=== PATIENT | female | born 1975 | race Caucasian/White ===

== ENCOUNTER 2016-11-03 07:18 | Inpatient (IN) ==
[2016-11-01 11:43] LABS: MANUAL DIFF NEEDED? NO
[2016-11-01 11:49] LABS: BASO% 0.4 % (0.0-0.8); EOS# 0.07 X1000 (0.0-0.7); EOS% 1.3 % (0.0-10.0); HEMATOCRIT 37.3 % (37.0-47.0); HEMOGLOBIN 12.8 g/dL (12.0-16.0); LYMPH# 1.94 X1000 (1.2-3.4); MCH 31.2 PG (27-31); MCHC 34.3 g/dL (33-37); MONO# 0.31 X1000 (0.11-0.59); MONO% 5.9 % (1.7-9.3); MPV 10.7 FL (7.4-10.4); NEUT% 55.4 % (42.2-75.2); PLT 189 X1000 (130-400)
[2016-11-01 12:40] LABS: AGAP 11; BUN 9 mg/dL (8-22); CALCIUM 8.9 mg/dL (8.8-10.2); CHLORIDE 103 mmol/L (98-107); COSMO 276; POTASSIUM 4.3 mmol/L (3.5-5.1); SODIUM 139 mmol/L (136-145); TCO2 25 mmol/L (25-35)
[2016-11-03] MEDS ORDERED: LR 1,000 ML ONE ×2 (07:31→12:03)
[2016-11-03] MEDS ORDERED: MEFOXIN 2 GM/NS 2 GM/50 ML IVPB ONE (07:32)
[2016-11-03] MEDS ORDERED: PEPCID ONE (07:32)
[2016-11-03] MEDS ORDERED: REGLAN ONE (07:33)
[2016-11-03] MEDS ORDERED: SODIUM CHLORIDE 0.9% 10 ML ONE (08:57)
[2016-11-03] MEDS ORDERED: MARCAINE 0.25% PF ONE (08:58)
[2016-11-03] MEDS ORDERED: EXPAREL 1.3% ONE (08:59)
[2016-11-03] MEDS ORDERED: METHYLENE BLUE 0.5% ONE (09:53)
[2016-11-03 10:28] LABS: URINE MICRO REVIEW NEEDED? NO; URINE SOURCE CATH
[2016-11-03 10:32] LABS: BILIRUBIN URINE NEGATIVE (NEGATIVE); BLOOD URINE NEGATIVE (NEGATIVE); COLOR STRAW; GLUCOSE URINE NEGATIVE (NEGATIVE); LEUKOCYTES URINE NEGATIVE (NEGATIVE); NITRITE URINE NEGATIVE (NEGATIVE); PH URINE 7.5; PROTEIN URINE NEGATIVE (NEGATIVE); SP GRAVITY URINE 1.006; TURBIDITY URINE CLEAR (CLEAR); UR EPITHELIAL CELLS <10 /HPF (<10); URINE BACTERIA NEGATIVE /HPF; URINE RBC <10 /HPF (<10); URINE WBC <10 /HPF (<10); UROBILINOGEN URINE NORMAL (NORMAL)
[2016-11-03] MEDS ORDERED: FENTANYL ONE (11:42)
[2016-11-03] MEDS ORDERED: ANESTHESIA PB SET 88 IN 5742 ONE (11:54)
[2016-11-03] MEDS ORDERED: EPHEDRINE ONE (11:54)
[2016-11-03] MEDS ORDERED: DECADRON ONE (11:54)
[2016-11-03] MEDS ORDERED: OFIRMEV 1000 MG/ISOTONIC SOLN 1,000 MG/100 ML BOTTLE ONE (11:54)
[2016-11-03] MEDS ORDERED: XYLOCAINE-MPF 2% ONE (11:54)
[2016-11-03] MEDS ORDERED: NEOSTIGMINE ONE (11:54)
[2016-11-03] MEDS ORDERED: ZOFRAN ONE (11:54)
[2016-11-03] MEDS ORDERED: EXTENSION SET 32 IN 4522 ONE (11:54)
[2016-11-03] MEDS ORDERED: ROBINUL ONE (11:54)
[2016-11-03] MEDS ORDERED: NORCURON ONE (11:54)
[2016-11-03] MEDS ORDERED: LR 2,000 ML ONE (11:54)
[2016-11-03] MEDS ORDERED: PHENERGAN ONE (12:05)
[2016-11-03] MEDS ORDERED: VERSED ONE (12:16)
[2016-11-03] MEDS ORDERED: DIPRIVAN 1% ONE (12:16)
--- NOTE | 2016-11-03 12:18 | OPERATIVE NOTE ---
PROCEDURE DATE: 11/03/2016 PREOPERATIVE DIAGNOSES: 1. Pelvic mass. 2. Personal history of colon cancer. POSTOPERATIVE DIAGNOSES: 1. Pelvic mass. 2. Personal history of colon cancer. 3. Omental metastatic disease. PROCEDURES: 1. Exploratory laparotomy. 2. Open resection of a 9 cm pelvic mass that appeared to be originating from the ovary, with preliminary diagnosis showing metastatic colon cancer. 3. Resection of omental metastatic masses x2, with a preliminary diagnosis of adenocarcinoma. 4. Small-bowel resection with [id number]-[id number]-aadi functional end-to-end stapled anastomosis. SURGEON: Toro Cervantes MD. HOOP RIVETING MACHINE OPERATOR HELPER: Dr. Sierra assisted for the entirety of the case. ANESTHESIA: General endotracheal. INTRAOPERATIVE FINDINGS: As noted above. COMPLICATIONS: None time of dictation. ESTIMATED BLOOD LOSS: 100 mL. SPECIMENS: 1. Pelvic mass. 2. Omentum x2. 3. Small bowel (5 cm in vivo). DRAINS: None. BRIEF HISTORY: The patient is a 41-year-old female, well known to me , from whom, back in June of this year, I resected her right colon for colon cancer. She at that time had significant elayne burden noted. She subsequently improved and received 2 rounds of chemotherapy. It was noted that she was developing abdominal pain and had a CT scan that noted an abdominal mass. It was felt the patient needed to have this resected. It appeared to be potentially arising from her right ovary. The risks, benefits, and alternatives for the procedure were discussed and all questions answered. DESCRIPTION OF PROCEDURE: After informed consent was obtained, patient was brought to the operative theatre, transferred to operating table, placed in supine position, and general tracheal anesthesia was then performed without complication. A formal time-out was then performed, confirming patient, date, and procedure. All were in agreement. At that time, attention was given to the abdomen. A standard midline incision through her old midline incision was made, and carried down through subcutaneous tissue, through the fascia, to the abdomen. We were able to enter into the abdomen. Upon entry into the abdomen, we did encounter a large cystic-like mass arising from the right side of her pelvis. It was intimately attached to her surrounding structures with a very thin wall. We did puncture into 2 of the cystic cavities , which drained serous fluid, but we were able to identify the attachments to the ovaries and we were able to mobilize it fully to the ovarian attachments, and we were able to ligate the ovarian artery and vein and the fallopian tube, and remove the mass. We were noted that we well above the ureter on that side. There was this piece of small bowel that was intimately attached to this area and we had to resect the mass off this area of small bowel. There appeared to be some residual disease burden left on the small bowel wall. There were also some small bowel serosal injuries near this area. Therefore, we elected to do a small-bowel resection. We took 5 cm in vivo of the small bowel, resected it with a ANA stapler, and performed a [id number] functional end-to-end anastomosis with the ANA stapler with good results. The lumen was patent and was healthy, with good blood supply. We then also noticed 2 omental masses that were in this area that were concerning for cancer. We resected these areas with the LigaSure and removed the masses in their entirety. We sent the ovary and the omental masses down for Pathology to review under preliminary inspection. They both came back with concern for metastatic adenocarcinoma, likely of colon primary. We irrigated out the abdomen copiously with sterile water, given the fact that we ruptured the cyst, to theoretically lyse any free cells. We reexamined all surfaces, with no active bleeding. Again, the ureter appeared to be protected the entire time. The old anastomosis was well protected and we did not try to examine it too thoroughly. We did palpate over the liver as much as we could and did not find any other disease burden. I was able to feel down in the area of the mesentery of the previous resection. I did not feel any major masses. There were some small calcified areas noted, but again we irrigated out the abdomen copiously. We then closed the fascia with a running looped PDS started from either end. We then stapled the skin with standard surgical mayank. The patient had a sterile dressing applied. Postoperatively , we will admit the patient and monitor her closely. I have discussed with Dr. Barrios, the patient's oncologist, about her course and about the operative findings. He will see the patient in the hospital. cc: MD ARASH Francis
[2016-11-03] MEDS: LR 1,000 ML IV SCH (15:09)
[2016-11-03] MEDS: MEFOXIN 2 GM/NS 2 GM/50 ML IVPB IV SCH ×2 (16:29→21:18)
[2016-11-03] MEDS: NORCO-10 PO PRN (19:23)
[2016-11-03] MEDS: ZINC SULFATE PO SCH (21:18)
[2016-11-03] MEDS: HEPARIN SUBQ SCH (21:18)
[2016-11-03] MEDS: MORPHINE IV PRN (21:18)
[2016-11-03] MEDS: PERIDEX MT SCH ×2 (21:18→21:19)
[2016-11-03] MEDS: AMBIEN PO SCH (21:18)
[2016-11-04] MEDS: LR 1,000 ML IV SCH ×4 (01:18→23:03)
[2016-11-04] MEDS: MORPHINE IV PRN ×6 (01:18→23:15)
[2016-11-04] MEDS: PRILOSEC PO SCH ×2 (05:07→06:38)
[2016-11-04] MEDS: HEPARIN SUBQ SCH ×3 (05:07→20:08)
[2016-11-04] MEDS: MEFOXIN 2 GM/NS 2 GM/50 ML IVPB IV SCH ×2 (05:07→09:33)
[2016-11-04] MEDS: NORCO-10 PO PRN ×3 (05:10→18:45)
--- NOTE | 2016-11-04 06:23 | PROGRESS NOTE ---
DATE: 11/04/2016 SUBJECTIVE: Patient doing well. Some minor issues with pain control. Otherwise, no major issues. OBJECTIVE: Vital Signs: Patient is currently afebrile. Her vital signs are stable. General: No acute distress. Cardiovascular: Regular rate and rhythm. Lungs: Grossly clear. Abdomen: Soft, appropriately tender. Dressing in place. Delcid catheter with serosanguineous output. ASSESSMENT AND PLAN: A 41-year-old female with a history of colon cancer, now status post exploratory laparotomy with open resection of pelvic mass, omental metastatic disease, and small bowel resection. Postoperative state. At this time, patient is currently postoperative day #1. Given her small- bowel resection, we will await return of bowel function before we do any advancement. Her IV antibiotics were just stopped today. Pathology is pending, but there is concern that it was metastatic disease from her colon cancer that was previously resected. We will get her Delcid catheter out today and ambulate the patient. cc: Toro Cervantes MD
[2016-11-04] MEDS: VICON-C PO SCH (09:33)
[2016-11-04] MEDS: THERA M PLUS PO SCH (09:33)
[2016-11-04] MEDS: ZINC SULFATE PO SCH ×2 (09:33→20:08)
[2016-11-04] MEDS: PERIDEX MT SCH ×4 (09:33→20:12)
--- NOTE | 2016-11-04 15:02 | CONSULTATION ---
DATE OF CONSULTATION: 11/04/2016 REASON FOR CONSULT: The patient is known to us with unresectable colorectal cancer, status post hemicolectomy. HISTORY OF PRESENT ILLNESS: The patient is a 41-year-old female, known to us with unresectable colon cancer, status post hemicolectomy for mechanical obstruction with lymph node metastases that were not able to be resected. Patient had 2 cycles of FOLFOX alone. Had a CT scan that showed increase in a mass in the pelvis. She was evaluated by Dr. Cervantes, who arranged surgery for her, and she is in the hospital now status post exploratory laparotomy with resection of omental metastasis, pelvic mass, and small-bowel resection by Dr. Cervantes. This was done on 11/03/2016. There were no complications. Patient is doing well. She is recovering nicely. Denies nausea, vomiting, diarrhea, constipation, fevers, chills. No lumps, bumps, or bone pain, or obvious clinical bleeding. Pathology is currently pending. REVIEW OF SYSTEMS: Negative unless indicated in HPI. ALLERGIES: There are no known allergies. PAST MEDICAL HISTORY: 1. Adenocarcinoma, as above, with bowel obstruction, status post hemicolectomy. 2. Bleeding polyps, status post polypectomy by Dr. Mejia. 3. Iron deficiency, status post IV iron. 4. B12 deficiency, on replacement. MEDICATIONS: Patient is on Zofran, Phenergan, Ambien, and B12. DIAGNOSTIC DATA: White count 5.25, hemoglobin 12.8, hematocrit 37.3, platelet count 189,000. Sodium is 139, potassium 4.3, BUN 9, and creatinine 0.6. PHYSICAL EXAMINATION: Vital Signs: Stable. General: This is a female in no acute distress. HEENT: Head normocephalic, atraumatic. Pupils equal, round, symmetric. Mucous membranes moist. Cardiovascular: S1 and S2 audible to auscultation with no heaves, lifts, thrills, or murmurs. Pulmonary: Breath sounds clear to auscultation. Nonlabored. Gastrointestinal: Abdomen soft, tender around her incision site. Positive bowel sounds in all 4 quadrants. Skin: There is a dressing to her abdominal incision, clean, dry, and intact. No petechiae, ecchymoses, rashes, or bruising. Musculoskeletal: Moves all extremities. Neurologic: Alert and oriented x3. Psychiatric: Appropriate to the situation. ASSESSMENT AND PLAN: 1. Colon cancer, status post hemicolectomy with lymph node metastases that could not be resected, now with omental metastases and pelvic mass, status post exploratory laparotomy with resection and small-bowel resection on 11/03/[address] Cervantes. Patient will follow up with us in the clinic as an outpatient once she is discharged from the hospital. 2. Pain, on morphine. Seems to be treating it well. 3. Deep vein thrombosis prophylaxis, on heparin. Dictated by SO Murillo for Christoph Barrios MD cc: SO Murillo MD Matthew L. Figh, MD
[2016-11-04] MEDS: AMBIEN PO SCH (23:03)
[2016-11-05] MEDS: MORPHINE IV PRN ×2 (01:54→05:19)
[2016-11-05] MEDS: NORCO-10 PO PRN ×5 (02:54→23:40)
[2016-11-05] MEDS: HEPARIN SUBQ SCH ×3 (05:11→21:07)
[2016-11-05] MEDS: ZOFRAN IV PRN ×2 (05:11→09:24)
[2016-11-05] MEDS: PRILOSEC PO SCH ×2 (05:12→06:31)
[2016-11-05 06:39] LABS: MANUAL DIFF NEEDED? NO
[2016-11-05 06:41] LABS: BASO% 0.2 % (0.0-0.8); EOS# 0.14 X1000 (0.0-0.7); EOS% 2.3 % (0.0-10.0); HEMATOCRIT 33.3 % (37.0-47.0); HEMOGLOBIN 11.3 g/dL (12.0-16.0); IMM GRAN# 0.02 X1000 (0.0-0.04); IMM GRAN% 0.3 % (0.0-0.5); LYMPH# 1.13 X1000 (1.2-3.4); LYMPH% 18.5 % (20.5-51.1); MCH 31.8 PG (27-31); MCHC 33.9 g/dL (33-37); MCV 93.8 FL (81-99); MONO% 6.6 % (1.7-9.3); MPV 10.6 FL (7.4-10.4); NEUT% 72.1 % (42.2-75.2); PLT 183 X1000 (130-400); RBC 3.55 XMIL (4.2-5.4)
[2016-11-05] MEDS: LR 1,000 ML IV SCH ×2 (07:29→17:03)
--- NOTE | 2016-11-05 08:33 | PROGRESS NOTE ---
DATE: 11/05/2016 SUBJECTIVE: Patient doing well. She feels a little bit bloated but otherwise no major issues. OBJECTIVE: Vital Signs: Patient is currently afebrile. Her vital signs are stable. General: No acute distress. Cardiovascular: Regular rate and rhythm. Lungs: Grossly clear. Abdomen: Soft, appropriately tender. Dressing removed, incision is healing well. ASSESSMENT/PLAN: A 41-year-old, female with history of colon cancer, now status post exploratory laparotomy with open resection of a pelvic metastatic, omental metastatic disease and small bowel metastatic disease. 1. Postoperative day #2, at this time, patient is currently doing well. 2. We will await more return of bowel function before advancing her diet. 3. We will continue current treatment. 4. Dr. Sierra will evaluate the patient while I am gone this weekend. cc: Toro Cervantes MD
[2016-11-05] MEDS: ZINC SULFATE PO SCH ×2 (09:27→21:07)
[2016-11-05] MEDS: VICON-C PO SCH (09:27)
[2016-11-05] MEDS: THERA M PLUS PO SCH (09:27)
[2016-11-05] MEDS: PERIDEX MT SCH ×4 (09:44→21:07)
[2016-11-05] MEDS: AMBIEN PO SCH (21:07)
[2016-11-06] MEDS: VICON-C PO SCH (09:43)
[2016-11-06] MEDS: NORCO-10 PO PRN ×4 (09:43→23:13)
[2016-11-06] MEDS: ZINC SULFATE PO SCH ×2 (09:43→21:51)
[2016-11-06] MEDS: PERIDEX MT SCH ×3 (09:43→21:51)
[2016-11-06] MEDS: THERA M PLUS PO SCH (09:43)
--- NOTE | 2016-11-06 10:31 | PROGRESS NOTE ---
DATE: 11/06/2016 SUBJECTIVE: Feels okay. She is passing gas. Tolerating clear liquids. The pain is moderately controlled. OBJECTIVE: Vital Signs: No fevers. No tachycardia. Blood pressure 102/58. General: She is alert. Abdomen: Soft, appropriately tender. Mildly distended. Incision is clean, dry, intact. LABS: Reviewed her labs. Nothing new today, and white count and hematocrit were stable yesterday. ASSESSMENT/PLAN: A 41-year-old female with metastatic colon cancer, now status post right oophorectomy and small bowel resection and partial omentectomy. Will advance her diet today. Stop her fluids. I have encouraged her to get out of bed and ambulate. She is progressing well. She is on deep vein thrombosis prophylaxis. cc: MD Toro Ramos MD
[2016-11-06] MEDS: HEPARIN SUBQ SCH ×3 (13:53→21:51)
[2016-11-06] MEDS: PRILOSEC PO SCH (18:01)
[2016-11-06] MEDS: AMBIEN PO SCH (21:51)
[2016-11-07] MEDS: NORCO-10 PO PRN ×4 (06:05→22:16)
[2016-11-07] MEDS: PRILOSEC PO SCH (06:05)
[2016-11-07] MEDS: HEPARIN SUBQ SCH ×3 (06:05→21:30)
[2016-11-07] MEDS: VICON-C PO SCH (10:14)
[2016-11-07] MEDS: ZINC SULFATE PO SCH ×2 (10:14→21:29)
[2016-11-07] MEDS: PERIDEX MT SCH ×2 (10:15→21:30)
[2016-11-07] MEDS: THERA M PLUS PO SCH (10:15)
--- NOTE | 2016-11-07 14:49 | PROGRESS NOTE ---
DATE: 11/07/2016 SUBJECTIVE: Having bowel function, some nausea but no vomiting, tolerating her diet otherwise. OBJECTIVE: Vital signs: No fevers. Temperature 98.2 degrees, pulse 70, blood pressure 96/62, oxygen saturation 97% on room air. Abdomen: Soft, appropriately tender. Incision clean, dry and intact without any erythema. LABS: I reviewed her labs nothing new today. ASSESSMENT/PLAN: A 41-year-old female metastatic colon cancer. Overall she is doing well. Will work on pain control and mobility today and plan for home soon in the next 24-48 hours. cc: MD Toro Ramos MD
[2016-11-07] MEDS: AMBIEN PO SCH ×2 (21:29→23:09)
[2016-11-08] MEDS: HEPARIN SUBQ SCH (06:06)
[2016-11-08] MEDS: PRILOSEC PO SCH (06:06)
[2016-11-08] MEDS: NORCO-10 PO PRN ×2 (06:11→10:35)
--- NOTE | 2016-11-08 06:39 | PROGRESS NOTE ---
DATE: 11/08/2016 SUBJECTIVE: Patient doing well. No major issues. Having return of bowel function. Some nausea but no vomiting. OBJECTIVE: Vital Signs: Patient is currently afebrile. Her vital signs are stable. General: No acute distress. Cardiovascular: Regular rate and rhythm. Lungs: Grossly clear. Abdomen: Soft, appropriately tender. Incision is healing well. ASSESSMENT/PLAN: A 41-year-old, female with metastatic colon cancer status post resection multiple metastatic disease. Overall, clinical status is improving. Hopefully she can be discharged in the next 24-48 hours. cc: Toro Cervantes MD
[2016-11-08] MEDS: VICON-C PO SCH (08:41)
[2016-11-08] MEDS: ZINC SULFATE PO SCH (08:41)
[2016-11-08] MEDS: PERIDEX MT SCH (08:41)
[2016-11-08] MEDS: THERA M PLUS PO SCH (08:41)
[2016-11-08 11:13] VITALS: BP 107/67
[2016-11-08] MEDS: ZOFRAN IV PRN (12:39)
--- NOTE | 2016-11-10 07:16 | DISCHARGE SUMMARY ---
ADMISSION DATE: 11/03/2016 DISCHARGE DATE: 11/08/2016 ADMITTING DIAGNOSIS: 1. History of right colon cancer. 2. Large pelvic mass. DISCHARGE DIAGNOSIS: Status post exploratory laparotomy. Resection of right ovary omental mass and small bowel resection. CONSULTATIONS: Dr. Barrios with Oncology. PROCEDURES: On 11/03/2016, the patient underwent exploratory laparotomy, resection of pelvic mass, resection of omental metastatic masses and small bowel resection. BRIEF HISTORY AND COURSE OF STAY: Patient is a 41-year-old, female, well known to me, who is status post right hemicolectomy for colon cancer in June. It was noted that she developed a large pelvic mass that was potentially obstructing her colon. Tensor resection, it is felt the patient needed this resected. The risks, benefits and alternatives for the procedure were discussed. She was admitted and underwent previously described procedure which she tolerated well. In the postoperative stay she was admitted to the floor. Her postoperative course was essentially uncomplicated. It did take several days for her have full return of bowel function, but she was able to tolerate up to a regular diet and having bowel movements. On the day of discharge, it was felt that it be safe for the patient to be discharged home. Arrangements were made. On the day of discharge, she was afebrile, ambulating, tolerating p.o., having bowel movements. DISCHARGE CONDITION: Stable. DISPOSITION: Patient can be discharged home. FOLLOWUP: The patient told to follow up with me 1-2 weeks. PRESCRIPTIONS: Patient was given pain prescriptions. cc: Toro Cervantes MD
== END 2016-11-08 14:36 | disposition home or self-care (01) ==
LOC: 4N 07:18 → OR 07:18 → OBSVTOIN 14:48
PROVIDERS: ADMIT Surgery; ATTEND Surgery
PROC: GE.OMEN (2016-11-03 09:26)

== ENCOUNTER 2018-08-22 13:47 | Inpatient (IN) ==
[2018-08-22] MEDS ORDERED: NS 1,000 ML IV SCH (15:00)
--- NOTE | 2018-08-22 16:40 | Diag Imaging Result Doc PS360 ---
EXAM: KUB ABDOMEN HISTORY: poss obstruction TECHNIQUE: Abdomen single view COMPARISON: None. FINDINGS: There are dilated small bowel loops in the mid abdomen. There are sutures in the mid right abdomen. Air is found in the colon. No organomegaly. Questionable pneumatosis in the pelvis. IMPRESSION: Findings may represent an early or partial obstruction. Possible pneumatosis intestinalis or irregular stool ball in the pelvis. Electronically signed by Gato Guerrero 08/22/2018 4:38 PM
[2018-08-22] MEDS: DILAUDID IV PRN ×3 (16:41→23:00)
[2018-08-22] MEDS: ZOFRAN IV PRN ×2 (16:49→23:00)
[2018-08-22 17:13] LABS: BASO# 0.02 X1000 (0.0-0.2); BASO% 0.2 % (0.0-0.8); EOS# 0.13 X1000 (0.0-0.7); HEMATOCRIT 40.2 % (37.0-47.0); HEMOGLOBIN 13.4 g/dL (12.0-16.0); IMM GRAN# 0.02 X1000 (0.0-0.04); IMM GRAN% 0.2 % (0.0-0.5); LYMPH# 1.11 X1000 (1.2-3.4); LYMPH% 8.9 % (20.5-51.1); MCH 33.3 PG (27-31); MCHC 33.3 g/dL (33-37); MCV 99.8 FL (81-99); MONO# 0.88 X1000 (0.11-0.59); MPV 10.8 FL (7.4-10.4); NEUT# 10.37 X1000 (1.4-6.5); NEUT% 82.7 % (42.2-75.2); PLT 182 X1000 (130-400); RBC 4.03 XMIL (4.2-5.4); RDW 12.9 % (11.5-14.5); WBC 12.53 X1000 (4.8-10.8)
[2018-08-22 17:34] LABS: ALB/GLOB RATIO 1.4; ALBUMIN 3.5 g/dL (3.5-5.0); CALCIUM 7.8 mg/dL (8.8-10.2); CREATININE 1.1 mg/dL (0.5-0.9); POTASSIUM 3.4 mmol/L (3.5-5.1); TOTAL BILIRUBIN 0.82 mg/dL (0.20-1.00)
--- NOTE | 2018-08-22 17:38 | HISTORY AND PHYSICAL ---
HISTORY OF PRESENT ILLNESS: This is a 43-year-old female who was sent over here. She has had 3 weeks now of mid subumbilical and also lower abdominal pain. Her past medical history includes she had persistent epigastric pain for 2 years that got worse and developed obstruction, and then she underwent a colon resection and they found colon cancer. The surgery was done by Dr. Cervantes. It looks like she had omental metastatic disease and he did an open resection with 9 cm pelvic mass that appeared to be originating from the ovary with primary diagnosis showing metastatic colon cancer, resection of omental metastatic masses x2, and preliminary diagnosis of adenocarcinoma. She had a small bowel resection with [id number] functional end-to-end stapled anastomosis. Apparently diagnostic tests were done on 10/18/2016 with malignant neoplasm of the ascending colon, 07/21/2016 was exploratory laparotomy with right hemicolectomy, ileal colonic anastomosis, hand-sewn. They did a CT scan follow-up: Significant increased size and multi- cystic mass in the pelvis and slight increase in the mesenteric adenopathy, so she is here because she is having more abdominal pain and concerned about more obstruction. I think they are going to do some studies look at the small bowel. PAST MEDICAL HISTORY: Other past medical history pretty unremarkable, really no other medical history. PAST SURGICAL HISTORY: She has had tonsillectomy, delivery 1 time, and a partial hysterectomy. ALLERGIES: Ceclor. FAMILY HISTORY: Father with alcohol abuse. Mother with arthritis. Mother with diabetes mellitus. Mother with heart disease. Father had hypercholesterolemia. SOCIAL HISTORY: Negative for alcohol. She quit smoking several years ago. REVIEW OF SYSTEMS: Main complaint: She has lost 10 pounds in a couple weeks. She is not eating. Gastrointestinal: More abdominal pain. She denies any hematochezia. Genitourinary: No gross hematuria or dysuria. HEENT: No change in visual or hearing acuity. Neck: No complaints of increased adenopathy or cervical pain. Respiratory: No increased work of breathing or dyspnea. Cardiovascular: No chest pain or tachy palpitation reported. Endocrinologic/Hemologic: No significant history. Musculoskeletal/Neurologic: No focal complaints, just general weakness. PHYSICAL EXAMINATION: VITAL SIGNS: Temperature 98.2, pulse 105, respirations 15, blood pressure 101/63. HEIGHT/WEIGHT: Weight 129 pounds. Height 5 feet 4 inches. EYES: Pupils are equal. NECK: No distended neck veins. LYMPHATIC: No cervical or supraclavicular adenopathy. LUNGS: Clear anterolateral. CARDIOVASCULAR: Regular rhythm and rate without murmur or S3. ABDOMEN: Nondistended. She has got pain that she points to below her umbilicus and lower in the abdomen at midline. EXTREMITIES: No pedal edema. DIAGNOSTIC STUDIES: Lab pending. ASSESSMENT AND PLAN: History of colon cancer, right colon, with metastatic disease in the omentum and having more complaints of pain and possible obstruction. She is asking for fluid, so we will try full liquids and see how she does. I think they are planning to explore the small bowel and look for obstruction. We will give her normal saline and will run it at 85 mL an hour. She has no history of left ventricular dysfunction. We will check general lab CBC. We will check a Chem 22 with a magnesium. We will check T4, TSH, B12, and folate. We will check a cortisol level in the morning, and we will check a magnesium level as well. Consult Dr. Cervantes. cc: Joe Fleming MD
[2018-08-23] MEDS: DILAUDID IV PRN ×7 (02:35→23:51)
[2018-08-23] MEDS: ZOFRAN IV PRN (02:35)
[2018-08-23] MEDS: NS 1,000 ML IV SCH ×2 (02:36→17:08)
[2018-08-23] MEDS: PHENERGAN IV PRN ×5 (06:05→23:52)
[2018-08-23] MEDS: SODIUM CHLORIDE 0.9% INJ PRN (06:06)
[2018-08-23 06:31] LABS: BASO# 0.02 X1000 (0.0-0.2); BASO% 0.2 % (0.0-0.8); EOS# 0.36 X1000 (0.0-0.7); HEMATOCRIT 39.5 % (37.0-47.0); HEMOGLOBIN 13.2 g/dL (12.0-16.0); IMM GRAN# 0.02 X1000 (0.0-0.04); IMM GRAN% 0.2 % (0.0-0.5); LYMPH# 1.24 X1000 (1.2-3.4); LYMPH% 10.3 % (20.5-51.1); MCH 33.5 PG (27-31); MCHC 33.4 g/dL (33-37); MCV 100.3 FL (81-99); MONO# 0.83 X1000 (0.11-0.59); MONO% 6.9 % (1.7-9.3); MPV 11.4 FL (7.4-10.4); NEUT# 9.52 X1000 (1.4-6.5); NEUT% 79.4 % (42.2-75.2); PLT 165 X1000 (130-400); RBC 3.94 XMIL (4.2-5.4); WBC 11.99 X1000 (4.8-10.8)
--- NOTE | 2018-08-23 06:41 | GENERAL SURGERY CONSULTATION ---
DATE: 08/23/2018 REQUESTING PHYSICIAN: Hospitalist service. REASON FOR CONSULTATION: Possible bowel obstruction. HISTORY OF PRESENT ILLNESS: A 43-year-old female, well known to me who approximately 2 years ago had an exploratory laparotomy and was found to have a perforated cecal cancer. She has had subsequent issues with peritoneal implants and recurrent disease and has been on chemotherapy since then. She has developed several weeks of supraumbilical lower abdominal pain with associated nausea and vomiting. She has been to the ER multiple times which showed persistent mass and increase in mesenteric adenopathy despite aggressive chemotherapy. There has been some concern about obstruction. She was admitted to the hospital for this. She is currently with some nausea and some pain and some abdominal discomfort. PAST MEDICAL HISTORY: Colon cancer. PAST SURGICAL: 1. Tonsillectomy. 2. . 3. Partial hysterectomy. 4. Colon surgery. 5. Port placement. 6. Repeat abdominal exploration. ALLERGIES: Cephalosporin. SOCIAL: Negative for alcohol. HOME MEDICATIONS: Reviewed. She is on chemotherapy. FAMILY HISTORY: Reviewed with patient, but noncontributory to this case. REVIEW OF SYSTEMS: A full 10 point review of systems obtained, negative as specified in HPI. PHYSICAL EXAMINATION: Vital Signs: Patient is currently afebrile. Vital signs stable. General: No acute distress. female looks stated age. HEENT: Normocephalic, atraumatic. Pupils equal, round, reactive to light. Mucous membranes moist. Oropharynx benign. Neck: Supple, trachea midline. Cardiovascular: Regular rate and rhythm. Lungs: Grossly clear. Abdomen: Soft, nondistended. Some tenderness to palpation in lower quadrants but no peritoneal signs. Extremities: Moves all extremities. Neurologic: Grossly intact. Skin: No signs of jaundice. Vascular: All extremities perfused. LABORATORY: White blood cell count slightly elevated to 12, hematocrit is 40, platelet count 182,000. Remainder of labs reviewed. IMAGING: With small abdominal film reviewed. ASSESSMENT AND PLAN: A 43-year-old with recurrent metastatic colon cancer with possible obstruction. 1. Possible obstruction. At this time the patient still with persistent nausea. We will change management administrator to IV Phenergan and we will see how this does. We will also get a small-bowel series. I would like to see if there actually is a point of obstruction. If she does have one, it is probably related to a peritoneal implant which might make surgery hard. I would like to see if there is a definitive point before committing her to any kind of exploration. Discussed this with the patient and her family. We will try to get a small-bowel series today. If she is unable to tolerate it with p.o., we might need to consider placing an NG tube. cc: Toro Cervantes MD
[2018-08-23 06:58] LABS: AGAP 13; ALB/GLOB RATIO 1.3; ALBUMIN 3.1 g/dL (3.5-5.0); ALKALINE PHOSPHATASE 184 U/L (32-104); BUN 9 mg/dL (8-22); CALCIUM 8.5 mg/dL (8.8-10.2); CHLORIDE 97 mmol/L (98-107); COSMO 276; CREATININE 0.7 mg/dL (0.5-0.9); ESTIMATED GFR > 60; GLUCOSE 96 mg/dL (70-104); GOT 33 U/L (10-30); GPT 20 U/L (10-36); MAGNESIUM 1.4 mg/dL (1.5-2.7); SODIUM 139 mmol/L (136-145); TCO2 29 mmol/L (25-35); TOTAL BILIRUBIN 0.75 mg/dL (0.20-1.00); TOTAL PROTEIN 5.4 g/dL (6.3-8.3)
[2018-08-23 07:05] LABS: FREE T4 1.85 ng/dL (0.93-1.70); TSH 0.41 uIUmL (0.27-4.20)
--- NOTE | 2018-08-23 07:34 | Diag Imaging Result Doc PS360 ---
EXAM: KUB ABDOMEN HISTORY: obstruction TECHNIQUE: Single view COMPARISON: 08/22/2018 FINDINGS: There continue to be air distended small bowel loops in the lower abdomen. There may be pneumatosis intestinalis. Small amount of air is in the colon. No organomegaly. No foreign body. There are sutures in the right abdomen. IMPRESSION: No improvement. Electronically signed by Gato Guerrero 08/23/2018 7:32 AM
--- NOTE | 2018-08-23 09:28 | PROGRESS NOTE ---
DATE: 08/23/2018 SUBJECTIVE: Ms. Hamilton is about the same. She still has some nausea. She is able to tolerate liquids. General surgery has seen her. She is getting IV Phenergan. We plan to get a small bowel series and see if, in fact, she has a point of obstruction. If she does have this, it is probably related to peritoneal implant which will make surgery hard so would like to see a definitive point before surgery goes in and does any kind of exploration. Abdominal x-ray showed no improvement. Continue to be air distended small bowel loops in the lower abdomen. There may be pneumatosis intestinalis, a small amount of air in the colon. No organomegaly. No foreign body. There are sutures in the right abdomen. PHYSICAL EXAMINATION: Today, temperature 97.8 degrees, pulse 93, respirations 16, blood pressure 127/82. Pupils are equal and round. Lungs are clear in all lung coe. Cardiovascular Examination: Regular rhythm and rate without murmur or S3. Abdomen is soft. Skin is warm and dry. Urine output is 2 L. ASSESSMENT AND PLAN: A 43-year-old with recurrent metastatic colon cancer, possible obstruction. Plan is to check the small bowel studies. Right now, on clear liquids and getting normal saline at 85 mL an hour. Continue intravenous Phenergan. She has Dilaudid for pain. cc: Joe Fleming MD
--- NOTE | 2018-08-23 11:32 | HEMO/ONC CONSULTATION ---
DATE: 08/23/2018 REASON FOR CONSULTATION: We were consulted for further management of patient's has metastatic colon adenocarcinoma. HISTORY OF PRESENT ILLNESS: Ms. Hamilton presented to our office yesterday complaining of ongoing persistent nausea and vomiting. The patient also complains of increased amounts of abdominal pain. Patient says she is vomiting up green emesis. The patient was sent to the emergency room on , but did not want to wait in the ER at that time and left. Then patient, later during the week, went to the [facility] emergency room later that week and was given pain and nausea medications and discharged home. The patient continued to have increased amounts of pain while in the office yesterday and increase with the nausea and vomiting despite taking pain and nausea medications, unable to eat or drink anything due to the pain. The patient did deny any fevers, chills. No chest pain or shortness of breath. The patient was sent to the hospital at that time and admitted for further evaluation. The patient is well known to us in our clinic where she follows up for metastatic colon adenocarcinoma, KRAS mutated. The patient initially had a large cecal mass without obstruction, prominent mesenteric lymph nodes, T3 N1 colon adenocarcinoma. The patient underwent right colon resection on 07/21/2016. 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 In August of 2017, the lymph nodes came back as being positive. Intraoperatively, there were nodes that could not be resected. The patient was then started on FOLFOX and Avastin in August 2016. The patient had increase in a multicystic mass in the pelvis on 10/18/2016. The patient underwent resection of right ovarian mass, resection of the small-bowel and omental resection on 11/03/2016, which revealed adenocarcinoma of the colon. Oxaliplatin was discontinued in December 2017 due to significant fatigue and tiredness. The patient then had progression of disease and treatment was changed to FOLFIRI and Avastin on 05/09. The patient had a significant cutaneous reaction to irinotecan, which was stopped, and Oxaliplatin was then restarted on 06/13/2018. The patient last received her FOLFOX treatment and Avastin 07/11/2018. PAST MEDICAL HISTORY: History of colon cancer. PAST SURGICAL HISTORY: Tonsillectomy, , partial hysterectomy, colon surgery, port placement, repeat abdominal exploration. FAMILY HISTORY: Noncontributory. SOCIAL HISTORY: Negative for tobacco, alcohol or illicit drug use. ALLERGIES: Allergic to cephalosporins. HOME MEDICATIONS: 1. Morphine sulfate. 2. Multivitamin. 3. Prilosec. 4. Ambien. REVIEW OF SYSTEMS: Negative unless otherwise mentioned in HPI. PHYSICAL EXAMINATION: Vital Signs: Temperature 97.8 degrees, heart rate 93, respiratory rate 16, blood pressure 127/82, saturation 99% on room air. General: Patient is awake, lying in bed, continues to have increase in abdominal pain. HEENT: Anicteric. Pupils PERRLA. Oropharynx noted to be dry. Neck: Supple. Trachea midline. No JVD. Lymph node survey : No palpable lymphadenopathy. Chest: Bilateral breath sounds clear to auscultation. Cardiovascular: S1, S2. Regular rate and rhythm. Abdomen: Soft, tender to palpation. Bowel sounds hypoactive. No hepatosplenomegaly noted. Skin: Warm, dry and intact. Neurologic: Alert and oriented x3. No focal deficits noted. LABORATORY DATA: White blood cell count is 11.99, hemoglobin 13.2, hematocrit 39.5, platelets are 165,000. Potassium 3.0, BUN 9, creatinine 0.7. RADIOLOGY REPORTS: Abdominal x-ray shows distended small bowel loops in the lower abdomen. May be pneumatosis intestinalis. Small amount of air in the colon. ASSESSMENT AND PLAN: 1. Metastatic colon adenocarcinoma: Patient last received her FOLFOX and Avastin on 07/11/2018. Due to increased amounts of nausea and vomiting and abdominal pain, treatment will be on hold until patient is improved, in September to treatment as an outpatient. We will continue to monitor at this time. 2. Increased amounts of abdominal pain: General Surgery has been consulted for possible small- bowel obstruction. Continue recommendations per them. 3. Persistent nausea: Zofran 16mg IV Daily. Patient will continue her IV p.r.n. medications. The patient is still has persistent nausea. We will continue to monitor closely. 4. Supportive care: Patient will continue to get out of bed as much as possible. The patient will continue exercises as instructed. Dictated by SO Ricks for Christoph Barrios MD Patient seen and examined. History of metastatic colon cancer. Over the last few weeks she has had right lower quadrant abdominal pain and a rising periodically. Suspect bowel obstruction. Support with pain management, IV fluids. Dr. Cervantes has been consulted. Christoph Barrios M.D. cc: SO Ricks MD [facility]
[2018-08-23] MEDS ORDERED: ZOFRAN IV SCH (13:15)
[2018-08-23] MEDS: ZOFRAN 16 MG in NS 25 ML IV SCH (14:50)
--- NOTE | 2018-08-23 15:13 | Diag Imaging Result Doc PS360 ---
EXAM: SMALL BOWEL SERIES ONLY 08/23/2018 HISTORY: possible bowel obstruction TECHNIQUE: Nine images. COMMENT: The metalworking specialist view demonstrated dilated small bowel loops in the left and mid lower abdomen. There is some gas in the colon with stool in the rectosigmoid colon. There is distention of the duodenum and proximal jejunum following barium administration. On the preliminary images there does appear to be some solid contents within the distal portions of the dilated small bowel loops. There may be some mucosal fold thickening and pneumatosis. The ileum is normal or diminished in diameter. There is an apparent transition zone in the right lower quadrant. Some barium does appear to reach the ascending colon. IMPRESSION: Partial obstruction of the distal jejunum/proximal ileum in the right lower quadrant. Mucosal fold thickening and pneumatosis in the dilated proximal segment. The findings were discussed with Toro Cervantes MD at 08/23/2018 3:10 PM. Electronically signed by Leobardo Mendoza 08/23/2018 3:10 PM
[2018-08-24] MEDS: NS 1,000 ML IV SCH ×2 (04:13→16:34)
[2018-08-24] MEDS: PHENERGAN IV PRN ×3 (04:13→20:06)
[2018-08-24] MEDS: DILAUDID IV PRN ×5 (04:13→20:06)
--- NOTE | 2018-08-24 05:46 | GENERAL SURGERY PROGRESS NOTE ---
DATE: 08/24/2018 SUBJECTIVE: The patient is doing okay. I reviewed her small-bowel images and discussed it with the radiologist. She does have slight partial small-bowel obstruction, but not complete. Right now she is currently resting. OBJECTIVE: Vital Signs: The patient is currently afebrile. Her vital signs are stable. General: No acute distress. HEENT: Normocephalic, atraumatic. Pupils equal, round, and reactive to light. Mucous membranes moist. Oropharynx benign. Neck: Supple. Trachea midline. Cardiovascular: Regular rate and rhythm. Lungs: Grossly clear. Abdomen: Soft. Some mild discomfort, but no peritoneal signs. Extremities: Moves all extremities. Neurologic: Grossly intact. Skin: No signs of jaundice. Vascular: All extremities perfused. DIAGNOSTIC DATA: Laboratory, none this morning. Images as noted above. ASSESSMENT AND PLAN: A 43-year-old with metastatic colon cancer, now with partial small-bowel obstruction. Metastatic colon cancer with partial small-bowel obstruction. At this time, I gave the patient 2 options. We can continue to monitor her, keep her more on liquids with Ensure, try to avoid blockage and spread out her meals over time or option 2 would be to take her to the operating room. The difficulty with option 2 is we might not be able to actually do anything surgically. The family and the patient want to discuss this and let me know what their decision is. Otherwise, continue current treatment. cc: Toro Cervantes MD
[2018-08-24] MEDS: SODIUM CHLORIDE 0.9% INJ PRN (08:50)
--- NOTE | 2018-08-24 08:59 | HEMO/ONC PROGRESS NOTE ---
DATE: 08/24/2018 SUBJECTIVE: The patient continues to have abdominal pain, continues to have some nausea. OBJECTIVE: Vital Signs: Temperature 98.2 degrees, heart rate 93, respiratory rate 18, blood pressure 130/79, satting 94% on nasal cannula. General: The patient is awake, lying in bed. No acute distress noted. HEENT: Anicteric. Pupils PERRLA. Mucosa moist. Chest : Bilateral breath sounds. Clear to auscultation. Cardiovascular: S1, S2. Regular rate and rhythm. Abdomen: Soft. Mild tenderness. Bowel sounds present. Neurologic: Alert and oriented x3. No focal deficits noted. RADIOLOGY: Small-bowel series shows partial obstruction of the distal jejunum/ proximal ileum in the right lower quadrant. ASSESSMENT AND PLAN: 1. Metastatic colon adenocarcinoma. Continue to monitor at this time. Hopefully, to restart treatment once the patient is discharged and back to baseline. 2. Small bowel obstruction. Continue recommendations per General Surgery and primary medical team. 3. Increased nausea. The patient will continue Zofran 16 mg intravenously daily. The patient will continue her intravenous phenarganas needed medications. Nausea is slightly improved. Will continue to monitor. 4. Abdominal pain. Continue intravenous pain medications. Will continue to monitor. Dictated by SO Ricks for Christoph Barrios MD cc: SO Ricks MD [facility]TD[facility]
--- NOTE | 2018-08-24 13:39 | PROGRESS NOTE ---
DATE: 08/24/2018 SUBJECTIVE: Ms. Hamilton is still pretty uncomfortable and nauseated. No bowel activity. OBJECTIVE: Temperature 98.6 degrees, pulse 80, respirations 18, blood pressure 109/72. Pupils are equal and round. Lungs are clear in all lung coe. Cardiovascular shows regular rhythm and rate without murmur or S3. ASSESSMENT AND PLAN: 1. Metastatic colon adenocarcinoma. Hopefully, she can restart her chemotherapy once she is discharged and back to baseline. 2. Small bowel obstruction per General Surgery. 3. Increased nausea giving her Zofran 60 mg intravenously daily. Continue IV medications. 4. Increased abdominal pain. Dr. Cervantes is following. He has given her 2 options. Continue to monitor. Keep her on liquids with Ensure. Try to avoid blockage and spread out her meals over time, or option 2 would be take her to the operating room and see if they could actually do anything surgically. I think she is considering those. 5. Review of her orders, she is getting normal saline 85 mL an hour. cc: Joe Fleming MD
[2018-08-24] MEDS: ZOFRAN 16 MG in NS 25 ML IV SCH (16:12)
[2018-08-25] MEDS: PHENERGAN IV PRN ×7 (00:08→23:39)
[2018-08-25] MEDS: DILAUDID IV PRN ×7 (00:08→23:39)
[2018-08-25] MEDS: NS 1,000 ML IV SCH ×3 (03:53→19:42)
--- NOTE | 2018-08-25 05:51 | GENERAL SURGERY PROGRESS NOTE ---
DATE: 08/25/2018 SUBJECTIVE: Patient doing about the same. OBJECTIVE: Vital Signs: Patient is afebrile. Vital signs stable. General: No acute distress. HEENT: Normocephalic, atraumatic. Pupils equal, round, reactive to light. Mucous membranes moist. Oropharynx benign. Neck: Supple. Trachea midline. Cardiovascular: Regular rate and rhythm. Lungs: Grossly clear. Abdomen: Soft. Some abdominal discomfort. No peritoneal signs. Extremities: Moves all extremities. Neurologic: Grossly intact. Skin: No signs of jaundice. Vascular: All extremities perfused. LABORATORY: None this morning. ASSESSMENT AND PLAN: A 43-year-old with metastatic colon cancer with a partial small bowel obstruction. Partial small bowel obstruction. At this time I had another lengthy conversation with the patient and her , presented them with the options again of continue observation with mostly liquid diet versus exploratory laparotomy. Discussed the risks, benefits, alternatives of both. At this point, I think the patient wants to hold off on surgery given the fact that there is a chance we might not do anything and even if we did something it could potentially come back. At this point, we will still continue to follow her. If she changes her mind, we can still take her to the operating room. cc: Toro Cervantes MD
--- NOTE | 2018-08-25 10:10 | PROGRESS NOTE ---
DATE: 08/25/2018 SUBJECTIVE: Ms Mcfadden does not feel any better. She is not sure what to do, whether they she wants to pursue exploratory surgery, but she clearly does not feel she has improved. Still nausea, still abdominal pain. OBJECTIVE: Vital signs: Temperature 98.2 degrees, pulse 80, respirations 18, blood pressure 136/87. HEENT: Pupils are equal round. Lungs: Clear in all lung coe. Cardiovascular: Regular rate without murmur or S3. Abdomen: I do hear bowel sounds. ASSESSMENT AND PLAN: 1. Partial small-bowel obstruction. At this time, she is having discussions with the surgeon and her about what are the options. Continue observation with mostly liquid diet versus exploratory lap, and she is not sure which she wants to do. 2. Metastatic colon adenocarcinoma. 3. Persistent nausea. Continue her Zofran and IV fluids. She is getting normal saline at 85 mL an hour. Gets Dilaudid 1 mg q.2 hours p.r.n. cc: Joe Fleming MD
[2018-08-25] MEDS: ZOFRAN 16 MG in NS 25 ML IV SCH (11:15)
[2018-08-25] MEDS: SODIUM CHLORIDE 0.9% INJ PRN (12:45)
--- NOTE | 2018-08-25 14:32 | HEMO/ONC PROGRESS NOTE ---
DATE: 08/25/2018 SUBJECTIVE: The patient continues to have nausea, vomiting, and increased abdominal pain. No other new complaints. OBJECTIVE: Vital Signs: Temperature 98.2 degrees, heart rate 83, respiratory rate 18, blood pressure 136/87, saturating 96% on room air. General: Patient is awake, lying in bed. No acute distress noted. HEENT: Anicteric, pupils PERRLA. Mucosa moist. Chest: Bilateral breath sounds clear to auscultation. Cardiovascular: S1, S2. Regular rate and rhythm. Abdomen: Soft, tender. Bowel sounds present in all 4 quadrants. Neurologic: Alert and oriented x3. No focal deficits noted. ASSESSMENT AND PLAN: 1. Metastatic colon adenocarcinoma: Continue to monitor at this time. Once patient is back to baseline, we will try to continue treatment at that time. 2. Small-bowel obstruction: Continue recommendations per General Surgery and primary medical team. 3. Nausea: Continue Zofran 60 mg IV daily. The patient to continue p.r.n. medications as well. This is slightly improved. Just continue to monitor at this time. 4. Abdominal pain: Increase IV pain medications. Patient needs to consider surgery if needed. Continue to monitor at this time. Dictated by SO Rikcs for Christoph Barrios MD Patient seen and examined. Most likely will need surgery for persistent symptoms. Christoph Barrios MD cc: SO Ricks MD [facility]
--- NOTE | 2018-08-25 17:25 | Diag Imaging Result Doc PS360 ---
EXAM: CHEST-PORTABLE INDICATION: NG placement TECHNIQUE: One view COMPARISON: 08/16/2016 FINDINGS: There is a newly placed NG tube. The tip projects well below the diaphragm and assumed to be in the lumen of the stomach in expected position. There is contrast media in the stomach from a prior study. There is a smaller amount of retained contrast media in the colon. Limited views of the lung bases are grossly unremarkable. There is a stable Port-A-Cath on the right. IMPRESSION: Newly placed NG tube in expected position as described. Electronically signed by Rufino Bailey 08/25/2018 5:22 PM
--- NOTE | 2018-08-26 00:07 | GENERAL SURGERY PROGRESS NOTE ---
DATE: 08/25/2018 I had a lengthy discussion with Dr. Barrios and the patient. At this point, the patient does want to try to do surgical intervention. Discussed with her the risks, benefits, and alternatives of the procedure. Discussed we might not be able to do anything but will at least attempt exploratory laparotomy. I did give her the option of going to [facility], but she wants to try to get it done here. We will plan on doing surgery in the morning. cc: Toro Cervantes MD
[2018-08-26] MEDS: DILAUDID IV PRN ×5 (05:44→23:24)
[2018-08-26] MEDS: PHENERGAN IV PRN ×2 (05:44→23:19)
[2018-08-26] MEDS ORDERED: VERSED ONE (08:50)
[2018-08-26] MEDS ORDERED: MARCAINE 0.5% ONE (08:55)
[2018-08-26] MEDS ORDERED: FENTANYL ONE (08:59)
[2018-08-26] MEDS ORDERED: DIPRIVAN 1% ONE (08:59)
[2018-08-26] MEDS ORDERED: LEVAQUIN 750 MG/D5W 750 MG/150 ML IVPB IV ONE (09:00)
[2018-08-26] MEDS ORDERED: FLAGYL 750 MG in NS 150 ML IV ONE (09:00)
[2018-08-26] MEDS ORDERED: EXPAREL 1.3% ONE (09:02)
[2018-08-26] MEDS ORDERED: QUELICIN (DOSE) ONE (09:04)
[2018-08-26] MEDS ORDERED: ROBINUL ONE ×2 (09:04→10:34)
[2018-08-26] MEDS ORDERED: XYLOCAINE-MPF 2% ONE (09:04)
[2018-08-26] MEDS ORDERED: ZEMURON ONE (09:04)
[2018-08-26] MEDS ORDERED: DECADRON ONE (10:34)
[2018-08-26] MEDS ORDERED: ZOFRAN ONE (10:34)
[2018-08-26] MEDS ORDERED: NEOSTIGMINE ONE (10:35)
--- NOTE | 2018-08-26 11:35 | PROGRESS NOTE ---
DATE: 08/26/2018 SUBJECTIVE: Mrs. Hamliton had just undergone surgery and is postop. OBJECTIVE: She is afebrile. Temperature 98.2 degrees, pulse 76, respirations 12, and blood pressure 109/77. Pupils are equal and round. Lungs are clear in all lung coe. Cardiovascular exam shows regular rhythm and rate. Abdomen with absent bowel sounds. Urine output was 2500 mL. ASSESSMENT AND PLAN: We just underwent exploratory laparotomy, I am not sure what the results were at this point. The chest x-ray from yesterday newly placed NG tube in good position. She has partial small bowel obstruction, and metastatic colon adenocarcinoma with persistent nausea. cc: Joe Fleming MD
--- NOTE | 2018-08-26 12:30 | GENERAL SURGERY PROGRESS NOTE ---
DATE: 08/26/2018 SUBJECTIVE: Patient doing about the same. Did have discussion yesterday with her bowel surgery, it is documented in the progress note. OBJECTIVE: Vital Signs: Patient is currently afebrile. Her vital signs stable. General: No acute distress. HEENT: Normocephalic, atraumatic. Pupils equal, round, reactive to light. Mucous membranes moist. Oropharynx benign. Neck: Supple. Trachea midline. Cardiovascular: Regular rate and rhythm. Lungs: Clear. Abdomen: Soft, nondistended, nontender at this time. Extremities: Moves all extremities. Neurologic: Grossly intact. Skin: No signs of jaundice. Vascular: All extremities perfused. LABORATORY DATA: None this morning as of yet. ASSESSMENT AND PLAN: A 43-year-old with metastatic colon cancer, now with nonresolving partial small-bowel obstruction. Partial small-bowel obstruction. At this time, I had a lengthy discussion with the patient yesterday and she wants to proceed with surgery. She is aware of the risks, benefits, and alternatives. She is aware that we may not be able to solve the problem but she still wants to proceed. We have her on the schedule today. Consent has been obtained. Will have perioperative antibiotics. cc: Toro Cervantes MD
[2018-08-26] MEDS ORDERED: SODIUM CHLORIDE 0.9% 10 ML ONE (12:54)
[2018-08-26] MEDS: PHENERGAN ONE ×3 (12:55→13:08)
[2018-08-26] MEDS: DILAUDID ONE ×3 (12:58→13:07)
[2018-08-26 13:29] LABS: URINE SOURCE CATH
[2018-08-26 13:32] LABS: BILIRUBIN URINE NEGATIVE (NEGATIVE); BLOOD URINE NEGATIVE (NEGATIVE); COLOR ORANGE; GLUCOSE URINE NEGATIVE (NEGATIVE); KETONE URINE >150 mg/dL (NEGATIVE); LEUKOCYTES URINE NEGATIVE (NEGATIVE); NITRITE URINE NEGATIVE (NEGATIVE); PROTEIN URINE 50 mg/dL (NEGATIVE); SP GRAVITY URINE 1.017; TURBIDITY URINE CLEAR (CLEAR); UROBILINOGEN URINE NORMAL (NORMAL)
[2018-08-26 13:34] LABS: UR EPITHELIAL CELLS <10 /HPF (<10); URINE BACTERIA NEGATIVE /HPF; URINE WBC <10 /HPF (<10)
--- NOTE | 2018-08-26 15:40 | OPERATIVE NOTE ---
PROCEDURE DATE: 08/26/2018 PREOPERATIVE DIAGNOSIS: Metastatic colon cancer with small-bowel obstruction. POSTOPERATIVE DIAGNOSIS: Metastatic colon cancer with small-bowel obstruction. PROCEDURES: 1. Exploratory laparotomy. 2. Palliative small-bowel bypass with jejunal to transverse colon anastomosis. SURGEON: Toro Cervantes MD. AIRCRAFT MAINTENANCE SUPERVISOR: Romain Brandon MD. Dr. Brandon assisted with the entirety of the case. ANESTHESIA: General endotracheal. INTRAOPERATIVE FINDINGS: Large mass up in the duodenum. Essentially all the small-bowel was going to the anastomosis for the distal small-bowel to the colon that was involved in this mass, making it unresectable and the only thing we could do was a palliative bypass. It was very friable tissue also. COMPLICATIONS: None at time of this dictation. ESTIMATED BLOOD LOSS: 400 mL. SPECIMENS REMOVED: None. BRIEF HISTORY: A 43-year-old female with metastatic colon cancer. She came in with partial obstruction and significant pain from partial obstruction. It was felt that she would benefit from exploratory laparotomy. The risks, benefits, and alternatives were discussed. All questions answered. DESCRIPTION OF PROCEDURE: After informed consent was obtained, patient brought to the operative theatre, transferred to the operating table, placed in supine position. General endotracheal anesthesia was then performed without complication. A formal time-out was then performed confirming patient, date, procedure. All were in agreement. At that time, attention was given to the abdomen. Anesthesia did a TAP block without complication. We then prepped and draped the abdomen in sterile fashion. After the time-out, we did a standard midline incision to enter into the abdomen. She had dense and matted adhesions, and it took us some time doing an adhesiolysis to identify the anatomy. She had a dense large mass in the right upper quadrant that essentially all the loops of bowel were going into. The tissue was very friable. We tried to dissect it. We tried to dissect as much as we could. I called Dr. Brandon into the case to assist with the procedure. We felt that the best thing right now for the patient given her symptoms and the unresectable nature of the small-bowel, it would be a palliative bypass. We brought up an area of mid jejunum to the transverse colon. We performed [id number]-af-rihr hand-sewn anastomosis with good results with 2 layers with silk and Vicryl. We then irrigated out the abdomen until the suction fluid was clear. We then closed the abdomen with a running loop PDS, started at either side, and mayank for the skin. The patient tolerated the procedure well, and was transferred to the floor in stable condition. cc: Toro Cervantes MD
[2018-08-26] MEDS: NS 1,000 ML IV SCH ×2 (16:34→16:55)
[2018-08-26] MEDS: ZOSYN 3.375 GM in NS 50 ML IV SCH ×2 (16:35→21:29)
[2018-08-26] MEDS: ZOFRAN 16 MG in NS 25 ML IV SCH (16:54)
[2018-08-26] MEDS: SODIUM CHLORIDE 0.9% INJ PRN (23:19)
[2018-08-27] MEDS: DILAUDID IV PRN ×10 (03:44→23:25)
[2018-08-27] MEDS: NS 1,000 ML IV SCH ×2 (03:44→03:47)
[2018-08-27] MEDS: ZOSYN 3.375 GM in NS 50 ML IV SCH ×5 (03:50→22:48)
[2018-08-27] MEDS: SODIUM CHLORIDE 0.9% INJ PRN ×2 (04:50→22:16)
[2018-08-27] MEDS: PHENERGAN IV PRN ×3 (04:50→22:16)
[2018-08-27 05:09] LABS: AGAP 16; BUN 5 mg/dL (8-22); CALCIUM 7.9 mg/dL (8.8-10.2); CHLORIDE 105 mmol/L (98-107); CHOLESTEROL 89 mg/dL (0-200); COSMO 280; CREATININE 0.6 mg/dL (0.5-0.9); ESTIMATED GFR > 60; GLUCOSE 99 mg/dL (70-104); GOT 19 U/L (10-30); MAGNESIUM 1.1 mg/dL (1.5-2.7); PHOSPHORUS 3.4 mg/dL (2.7-4.5); POTASSIUM 3.4 mmol/L (3.5-5.1); PREALBUMIN 6.2 mg/dL (20-40); SODIUM 142 mmol/L (136-145); TCO2 21 mmol/L (25-35); TRIGLYCERIDES 66 mg/dL (35-135)
--- NOTE | 2018-08-27 06:47 | GENERAL SURGERY PROGRESS NOTE ---
DATE: 08/27/2018 SUBJECTIVE: Patient seems to be doing okay after surgery. OBJECTIVE: Vital signs: The patient is hemodynamically stable. She does have a little bit of tachycardia. General: No acute distress. Cardiovascular: Some mild tachycardia. Lungs: Grossly clear. Abdomen: Soft, appropriately tender. ASSESSMENT/PLAN: A 43-year-old female status post palliative small-bowel bypass secondary to obstructing metastatic colon cancer. Postoperative state at this time. We will remove her Delcid catheter. She is going to be started on TPN through her port. When she has a little bit more return of bowel function, we will plan on removing her NG tube and letting her drink some liquids. Otherwise, continue supportive care. cc: Toro Cervantes MD
[2018-08-27 07:35] LABS: ALB/GLOB RATIO 1.4; ALBUMIN 2.6 g/dL (3.5-5.0); DIRECT BILIRUBIN 0.6 mg/dL (0.00-0.20); TOTAL BILIRUBIN 0.87 mg/dL (0.20-1.00); TOTAL PROTEIN 4.4 g/dL (6.3-8.3)
[2018-08-27] MEDS: PERIDEX MT SCH ×3 (07:56→22:16)
[2018-08-27] MEDS: ZOFRAN 16 MG in NS 25 ML IV SCH (08:38)
[2018-08-27] MEDS ORDERED: POTASSIUM CHLORIDE 40 MEQ/SWI 40 MEQ/100 ML IVPB IV ONE (12:50)
[2018-08-27] MEDS ORDERED: MAGNESIUM SULFATE IV SCH ×8 (13:00)
[2018-08-27] MEDS ORDERED: POTASSIUM CHLORIDE IV SCH ×8 (13:00)
[2018-08-27] MEDS ORDERED: TPN ELECTROLYTES IV SCH ×8 (13:00)
[2018-08-27] MEDS ORDERED: [UNRECOGNIZED DRUG - OTHER] IV SCH ×8 (13:00)
[2018-08-27] MEDS ORDERED: D10W 1,000 ML IV PRN (13:00)
--- NOTE | 2018-08-27 13:09 | PROGRESS NOTE ---
DATE: 08/27/2018 SUBJECTIVE: Ms. Hamilton is still pretty uncomfortable. We had a long discussion. I told her that there was cancer involved in most of her small bowel, that we bypassed the small bowel, but I expected the cancer to grow. She wanted to know how long she had to live and I told her we really do not know that. I am expecting she will have loose stools and will recover from her surgery with the anastomosis of the large bowel to the duodenum. OBJECTIVE: Vitals: Temperature is 98 degrees, pulse 100, respirations 18, blood pressure 104/66. Eyes: Pupils are equal and round. Lungs: Clear in all lung coe. She has an NG tube in place. Cardiovascular: Regular rhythm and rate without murmur or S3. URINE OUTPUT: 1700 mL. LABORATORY: No new laboratory. As far as CBC, her electrolytes, sodium 142, potassium 3.4, chloride 105, BUN 5, creatinine 0.6, alkaline phosphatase is 89, albumin is 2.6. Transaminases, AST was 19, ALT was 10. ASSESSMENT AND PLAN: 1. Status post palliative small-bowel bypass secondary to obstructing metastatic colon cancer. We will get her started on TPN through her port. Plan on removing NG tube and try to let her drink some liquids and ask Oncology to see if there is any plan for treatment. 2. Metastatic colon adenocarcinoma. 3. Persistent nausea. Hopefully, this is going to help bypass any obstruction. Review of her orders: She is on Zosyn 3.375 g IV q.6. She got 1 dose of levofloxacin before surgery. She is getting normal saline at 85 mL an hour. cc: Joe Fleming MD
[2018-08-27] MEDS: HEPARIN SUBQ SCH ×2 (13:48→22:16)
[2018-08-27] MEDS: LIPOSYN 20% 250 ML IV SCH (13:56)
--- NOTE | 2018-08-27 17:53 | HEMO/ONC PROGRESS NOTE ---
DATE: 08/27/2018 SUBJECTIVE: Patient underwent laparotomy yesterday. I discussed with Dr. Cervantes. She was palliatively bypassed for her obstruction. Patient reports she has surgical pain but no severe pain like she had over the last several weeks. PHYSICAL EXAMINATION: General: Patient is lying in bed, comfortable at this time. Vital signs: Temperature 98.3 degrees, pulse 104, blood pressure 91/63. HEENT: Eyes anicteric. Mucous membranes appear slightly dry. Cardiac: Regular rate and rhythm. Normal S1, S2. Chest: Clear to auscultation. Abdomen: Reveals surgical site. Mildly tender. No bowel sounds. Extremities: No cyanosis, clubbing, or edema. Neurological: Alert and oriented x3. LABS: BUN 5, creatinine 0.6, albumin 2.6. ASSESSMENT AND PLAN: 1. Metastatic colorectal cancer: For now holding off chemotherapy. 2. Small bowel obstruction, status post surgery: Pain is much improved. She has some postoperative pain at this time which is manageable. 3. Nutrition: Start TPN today. 4. Deep vein thrombosis prophylaxis: On heparin. 5. Pain management: On Dilaudid 2 mg q.2 hours p.r.n. cc: Christoph Barrios MD [facility]
[2018-08-28] MEDS: DILAUDID IV PRN ×8 (02:34→21:26)
[2018-08-28 06:19] LABS: BASO# 0.02 X1000 (0.0-0.2); BASO% 0.2 % (0.0-0.8); EOS# 0.09 X1000 (0.0-0.7); EOS% 0.8 % (0.0-10.0); HEMATOCRIT 26.1 % (37.0-47.0); HEMOGLOBIN 8.5 g/dL (12.0-16.0); IMM GRAN# 0.02 X1000 (0.0-0.04); IMM GRAN% 0.2 % (0.0-0.5); LYMPH# 1.24 X1000 (1.2-3.4); LYMPH% 11.5 % (20.5-51.1); MCH 32.8 PG (27-31); MCHC 32.6 g/dL (33-37); MCV 100.8 FL (81-99); MONO# 0.59 X1000 (0.11-0.59); MONO% 5.5 % (1.7-9.3); MPV 10.9 FL (7.4-10.4); NEUT# 8.78 X1000 (1.4-6.5); NEUT% 81.8 % (42.2-75.2); PLT 163 X1000 (130-400); RBC 2.59 XMIL (4.2-5.4); RDW 12.5 % (11.5-14.5); WBC 10.74 X1000 (4.8-10.8)
[2018-08-28 06:45] LABS: AGAP 10; ALB/GLOB RATIO 0.9; ALBUMIN 2.5 g/dL (3.5-5.0); ALKALINE PHOSPHATASE 87 U/L (32-104); BUN 6 mg/dL (8-22); CALCIUM 8.1 mg/dL (8.8-10.2); CHLORIDE 102 mmol/L (98-107); COSMO 276; CREATININE 0.5 mg/dL (0.5-0.9); ESTIMATED GFR > 60; GLUCOSE 113 mg/dL (70-104); GOT 30 U/L (10-30); GPT 11 U/L (10-36); MAGNESIUM 1.4 mg/dL (1.5-2.7); PHOSPHORUS 1.5 mg/dL (2.7-4.5); POTASSIUM 2.9 mmol/L (3.5-5.1); SODIUM 139 mmol/L (136-145); TCO2 27 mmol/L (25-35); TOTAL BILIRUBIN 0.63 mg/dL (0.20-1.00); TOTAL PROTEIN 5.3 g/dL (6.3-8.3)
--- NOTE | 2018-08-28 06:54 | GENERAL SURGERY PROGRESS NOTE ---
DATE: 08/28/2018 SUBJECTIVE: The patient seems to be doing okay. She is not sick to her stomach. She says she feels like she is about to pass some gas, but she has not had a bowel movement per the patient. She has been able to void after having her Delcid catheter removed. OBJECTIVE: Vital Signs: The patient is currently afebrile. Her vital signs are stable. General: No acute distress. Cardiovascular: Regular rate and rhythm. Lungs: Grossly clear. Abdomen: Soft. Appropriately tender. ASSESSMENT AND PLAN: A 43-year-old, now postoperative day number 2 from exploratory laparotomy with palliative small-bowel bypass for metastatic colon cancer. Postoperative state: At this time, we will remove her nasogastric tube. We will let her sip on some water and continue to monitor her. cc: Toro Cervantes MD
[2018-08-28] MEDS: PERIDEX MT SCH ×3 (10:30→21:26)
[2018-08-28] MEDS: ZOSYN 3.375 GM in NS 50 ML IV SCH ×2 (10:30→14:03)
[2018-08-28] MEDS: ZOFRAN 16 MG in NS 25 ML IV SCH ×2 (11:00→13:16)
[2018-08-28] MEDS ORDERED: MAGNESIUM SULFATE 2 GM/S.W.I. 2 GM/50 ML IVPB IV ONE (11:57)
[2018-08-28] MEDS ORDERED: POTASSIUM CHLORIDE 40 MEQ/SWI 40 MEQ/100 ML IVPB IV ONE (11:58)
--- NOTE | 2018-08-28 12:19 | PROGRESS NOTE ---
DATE: 08/28/2018 SUBJECTIVE: Ms. Hamilton is a little more comfortable. She is requesting a drink of Sprite. She still has NG tube in. She is tolerating water. She has not had any bowel movement. OBJECTIVE: Temperature 97.8 degrees, pulse 97, respirations 16, and blood pressure 110/70. Pupils are equal and round lungs are clear in all lung coe. Cardiovascular exam with regular rhythm and rate without murmur or S3. Abdomen soft. Absent bowel sounds on my exam. No edema. Blood sugars 124, 105, and 119. ASSESSMENT/PLAN: 1. Postoperative day #2 for exploratory laparotomy, palliative small bowel bypass from her metastatic colon cancer. I think the plan is to remove her NGT to see if we can advance her diet as peristalsis returns. Dr. Barrios is her oncologist. The plan is to see what our postop treatment options are. 2. Nutrition. Start TPN. 3. Continue thrombosis prophylaxis, and her pain management. REVIEW OF HER ORDERS: I do not see any change at this point. LABORATORY DATA: Review of lab this morning, white count 23165, hematocrit is 26, and platelet count 163,000. Sodium 139, potassium 2.9, chloride 102, BUN 6, creatinine 0.5, and magnesium was 1.4. I will go ahead and give her an additional magnesium and potassium today. cc: Joe Fleming MD
[2018-08-28] MEDS: HEPARIN SUBQ SCH ×2 (13:13→21:26)
--- NOTE | 2018-08-28 13:48 | HEMO/ONC PROGRESS NOTE ---
DATE: 08/28/2018 SUBJECTIVE: Patient says pain continues to improve. Patient says she has not had any nausea, no vomiting. OBJECTIVE: Vital Signs: Temperature 97.8 degrees, heart rate 97, respiratory rate 16, blood pressure 110/70, saturation 95% on room air. General: Patient is awake, lying in bed, no acute distress noted. HEENT: Anicteric. Pupils PERRLA. Mucous membranes slightly dry. Cardiovascular: S1, S2. Regular rate and rhythm. Chest: Bilateral breath sounds clear to auscultation. Abdomen: Slightly tender to surgical site. Dressings clean, dry and intact. Neurologic: Alert and oriented x3. No focal deficits noted. LABORATORY DATA: White blood cell count is 10.74, hemoglobin 8.5, hematocrit 26.1, platelets are 163,000 potassium 2.9, BUN 6, creatinine 0.5. ASSESSMENT AND PLAN: 1. Metastatic colorectal cancer: Continue to hold the chemotherapy and continue to monitor. 2. Small bowel obstruction status post surgery: Pain continues to improve. Continue recommendations by Primary Medical Team and surgery. 3. Nutrition: TPN is started. Continue at this time. 4. Deep venous thrombosis prophylaxis: Continue heparin as ordered. 5. Pain management. Continue Dilaudid 2 mg every 2 hours as needed. Pain is much better. 6. Supportive care: Patient is to get out of bed as much as possible. Continue strength exercises as instructed. Dictated by SO Ricks for Christoph Barrios MD Patient seen and examined. Postsurgical pain continues to improve. She is sitting in bed today. Appears much comfortable. On TPN at this time. Continue pain management. Postoperative care per Dr. oTro Cervantes. Christoph Barrios M.D. cc: SO Ricks MD [facility]
[2018-08-28] MEDS: NS 1,000 ML IV SCH (15:17)
[2018-08-28] MEDS: LIPOSYN 20% 250 ML IV SCH ×2 (19:01→19:05)
[2018-08-28] MEDS: TPN ELECTROLYTES IV SCH ×8 (19:05)
[2018-08-28] MEDS: MAGNESIUM SULFATE IV SCH ×8 (19:05)
[2018-08-28] MEDS: POTASSIUM CHLORIDE IV SCH ×8 (19:05)
[2018-08-28] MEDS: [UNRECOGNIZED DRUG - OTHER] IV SCH ×8 (19:05)
[2018-08-28] MEDS: PHENERGAN IV PRN (21:26)
[2018-08-29] MEDS: DILAUDID IV PRN ×10 (01:05→22:18)
[2018-08-29] MEDS: ZOSYN 3.375 GM in NS 50 ML IV SCH ×4 (01:05→19:51)
[2018-08-29] MEDS: PHENERGAN IV PRN ×3 (01:05→23:30)
[2018-08-29] MEDS: HEPARIN SUBQ SCH ×3 (04:06→19:52)
--- NOTE | 2018-08-29 07:16 | GENERAL SURGERY PROGRESS NOTE ---
DATE: 08/29/2018 SUBJECTIVE: Patient seems to be doing okay. She is not sick to her stomach. She did okay with some sips. No bowel movement as of yet. OBJECTIVE: Vital Signs: Patient is currently afebrile. Her vital signs are stable. General: No acute distress. Cardiovascular: Regular rate and rhythm. Lungs: Grossly clear. Abdomen: Soft, appropriately tender. ASSESSMENT AND PLAN: A 43-year-old female now postoperative day number 3 from exploratory laparotomy with palliative small bowel bypass for obstructing metastatic colon cancer. Postoperative state: At this time, we will put her on a clear liquid diet and see how she does. I want the patient to ambulate more. We will monitor her closely. cc: Toro Cervantes MD
[2018-08-29 07:33] LABS: AGAP 10; ALB/GLOB RATIO 0.7; ALBUMIN 2.3 g/dL (3.5-5.0); ALKALINE PHOSPHATASE 104 U/L (32-104); BUN 7 mg/dL (8-22); CHLORIDE 97 mmol/L (98-107); COSMO 273; CREATININE 0.4 mg/dL (0.5-0.9); ESTIMATED GFR > 60; GLUCOSE 112 mg/dL (70-104); GOT 34 U/L (10-30); GPT 14 U/L (10-36); MAGNESIUM 1.8 mg/dL (1.5-2.7); PHOSPHORUS 2.5 mg/dL (2.7-4.5); POTASSIUM 3.4 mmol/L (3.5-5.1); SODIUM 137 mmol/L (136-145); TCO2 30 mmol/L (25-35); TOTAL PROTEIN 5.4 g/dL (6.3-8.3)
[2018-08-29] MEDS: PERIDEX MT SCH ×2 (08:44→19:52)
[2018-08-29] MEDS: ZOFRAN 16 MG in NS 25 ML IV SCH (08:46)
--- NOTE | 2018-08-29 08:54 | HEMO/ONC PROGRESS NOTE ---
DATE: 08/29/2018 SUBJECTIVE: Patient continues to improve. Patient denies any nausea or vomiting. Patient's abdominal pain continues to improve as well. Patient tolerated oral fluids, sips oral fluids well. OBJECTIVE: Vital Signs: Temperature of 97.2 degrees, heart rate 96, respiratory rate 16, blood pressure 130/73, saturating 95% on room air. General: Patient is awake, lying in bed. No acute distress noted. HEENT: Anicteric. Pupils PERRLA. Mucous membranes appear to be dry. Cardiovascular: S1, S2. Regular rate and rhythm. Chest: Bilateral breath sounds clear to auscultation. Abdomen: Soft, mildly tender. Neurologic: Alert and oriented x3. No focal deficits noted. Laboratory Data: Potassium 3.4, BUN 7, creatinine 0.4. ASSESSMENT AND PLAN: 1. Metastatic colorectal cancer: Continue to hold the chemotherapy until the patient is back to baseline. We will continue to monitor. 2. Small bowel obstruction, status post surgery: Pain continues to improve. Continue recommendations per primary medical team and general surgery. 3. Nutrition: Continue total parenteral nutrition as ordered. The patient will slowly continue to progress her diet as instructed by surgery. 4. Deep venous thrombosis prophylaxis: Continue heparin as ordered. 5. Pain management: Pain continues to improve. Continue medications as needed. 6. Supportive care: Patient to continue to get out of bed as much as possible. Continue strengthening exercises as instructed. Plan of care was discussed with Dr. Barrios. Dictated by SO Ricks for Christoph Barrios MD cc: SO Ricks MD
--- NOTE | 2018-08-29 17:59 | PROGRESS NOTE ---
DATE: 08/29/2018 SUBJECTIVE: The patient complains of abdominal pain. No acute events noted overnight. OBJECTIVE: Vital Signs: Temperature 97.8 degrees, blood pressure 95/63, heart rate 88, respirations 16, O2 saturation is 96% on room air. General: This is a middle-aged female lying in bed, in no acute distress. Heart: S1, S2 normal. Regular rate and rhythm. Lungs: Equal air entry bilaterally. No crackles. No rales. Abdomen: Positive bowel sounds. Soft, nontender, nondistended. Extremities: No edema. No cyanosis. Neurologic: The patient is alert and oriented x3. LABS: Potassium 3.4, sodium 137, BUN 7, creatinine 0.4, glucose 139, magnesium 1.8, phosphorus 2.5. ASSESSMENT AND PLAN: 1. Status post exploratory laparotomy with palliative small bowel bypass with a jejunal to transverse colon anastomosis. Management as per General Surgery. The patient's diet has been advanced to a clear liquid diet. 2. Metastatic colon cancer. Management as per Dr. Barrios. 3. Hypokalemia. Will replace the patient's potassium. 4. Anemia. Stable. 5. Gastrointestinal prophylaxis. Continue on IV Protonix. 6. Deep vein thrombosis prophylaxis. Continue on heparin. cc: Maria Luz Serrano MD
[2018-08-29] MEDS: NS 1,000 ML IV SCH (18:44)
[2018-08-29] MEDS: POTASSIUM CHLORIDE IV SCH ×8 (19:51)
[2018-08-29] MEDS: [UNRECOGNIZED DRUG - OTHER] IV SCH ×8 (19:51)
[2018-08-29] MEDS: TPN ELECTROLYTES IV SCH ×8 (19:51)
[2018-08-29] MEDS: MAGNESIUM SULFATE IV SCH ×8 (19:51)
[2018-08-30] MEDS: ZOSYN 3.375 GM in NS 50 ML IV SCH ×4 (01:14→19:50)
[2018-08-30] MEDS: DILAUDID IV PRN ×9 (01:15→23:31)
[2018-08-30] MEDS: HEPARIN SUBQ SCH ×4 (03:10→19:51)
[2018-08-30] MEDS: LIPOSYN 20% 250 ML IV SCH ×2 (03:10→19:50)
[2018-08-30] MEDS: PERIDEX MT SCH ×3 (03:11→19:51)
--- NOTE | 2018-08-30 06:20 | GENERAL SURGERY PROGRESS NOTE ---
DATE: 08/30/2018 SUBJECTIVE: Patient doing okay. She had a little bit of nausea. She passed a little bit of gas but has not had a bowel movement. OBJECTIVE: Vital Signs: Patient is currently afebrile. Her vital signs are stable. General: No acute distress. Cardiovascular: Regular rate and rhythm. Lungs: Grossly clear. Abdomen: Soft, appropriately tender. Dressing intact. ASSESSMENT AND PLAN: A 43-year-old female now postop day #4 from exploratory laparotomy and palliative small-bowel bypass for obstructing colon cancer. Postop state, at this time, we will keep her on a clear liquid diet and encourage mobilization and wait for definitive return of bowel function. cc: Toro Cervantes MD
[2018-08-30 06:36] LABS: HEMATOCRIT 26.9 % (37.0-47.0); MCH 33.6 PG (27-31); MCHC 33.5 g/dL (33-37); MCV 100.4 FL (81-99); MPV 10.4 FL (7.4-10.4); RBC 2.68 XMIL (4.2-5.4); RDW 12.5 % (11.5-14.5); WBC 9.17 X1000 (4.8-10.8)
[2018-08-30] MEDS: PHENERGAN IV PRN (06:44)
[2018-08-30 06:53] LABS: AGAP 11; ALB/GLOB RATIO 0.8; ALBUMIN 2.6 g/dL (3.5-5.0); ALKALINE PHOSPHATASE 139 U/L (32-104); BUN 7 mg/dL (8-22); CALCIUM 8.4 mg/dL (8.8-10.2); CHLORIDE 96 mmol/L (98-107); COSMO 273; CREATININE 0.4 mg/dL (0.5-0.9); ESTIMATED GFR > 60; GLUCOSE 118 mg/dL (70-104); GOT 58 U/L (10-30); GPT 25 U/L (10-36); MAGNESIUM 1.9 mg/dL (1.5-2.7); PHOSPHORUS 3.8 mg/dL (2.7-4.5); POTASSIUM 3.3 mmol/L (3.5-5.1); SODIUM 137 mmol/L (136-145); TCO2 30 mmol/L (25-35); TOTAL BILIRUBIN 0.59 mg/dL (0.20-1.00); TOTAL PROTEIN 5.7 g/dL (6.3-8.3)
[2018-08-30] MEDS: PROTONIX IV SCH (08:55)
[2018-08-30] MEDS: ZOFRAN 16 MG in NS 25 ML IV SCH (08:58)
[2018-08-30] MEDS: SODIUM CHLORIDE 0.9% INJ PRN (08:58)
[2018-08-30] MEDS ORDERED: DURAGESIC 25 MICROGM/HR PATCH TD SCH (13:00)
--- NOTE | 2018-08-30 13:41 | HEMO/ONC PROGRESS NOTE ---
DATE: 08/30/2018 SUBJECTIVE: Patient slowly says she continues to improve. The patient had very mild nausea. Pain continues to improve. OBJECTIVE: Vital Signs: Temperature 97.9 degrees, heart rate 95, respiratory rate 16, blood pressure 112/91, satting 97% on room air. General: Patient is awake, lying in bed, no acute distress noted. HEENT: Anicteric, pupils PERRLA, mucous membranes appear moist. Cardiovascular: S1, S2. Regular rate and rhythm. Chest: Bilateral breath sounds. Clear to auscultation. Abdomen: Soft, mildly tender. Bowel sounds present in all 4 quadrants. Wound intact. Neurologic: Alert and oriented x3. No focal deficits noted. LABORATORY DATA: White blood cell count is 9.17, hemoglobin 9.7, hematocrit 26.9, platelets are 230. Potassium 3.3, BUN 7, creatinine 0.4. ASSESSMENT AND PLAN: 1. Metastatic colorectal cancer: Continue to hold therapy. Restart once the patient is back to baseline. We will continue to monitor closely. 2. Small bowel obstruction, status post surgery. The patient continues to improve. Continue to slowly increase diet as instructed by General Surgery. Continue to monitor closely. 3. Anemia: Continues to be stable. Continue to monitor closely. 4. Nutrition: Continue total parenteral nutrition as ordered. 5. Deep venous thrombosis prophylaxis. Continue heparin as ordered. 6. Supportive care. Continue the patient get out of bed as much as possible. Continue strength exercises as instructed. Dictated by SO Ricks for Christoph Barrios MD Patient seen and examined. As above. Still continue to receive Dilaudid every 2 hours. Start Duragesic patch 25 g every 72 hours. Continue current management. Christoph Barrios M.D. cc: SO Ricks MD [facility]
[2018-08-30] MEDS: NS 1,000 ML IV SCH (15:18)
--- NOTE | 2018-08-30 18:45 | PROGRESS NOTE ---
DATE: 08/30/2018 SUBJECTIVE: The patient is resting comfortably in bed. She complains of abdominal pain and is requiring Dilaudid every 2 hours. She reports that she is passing gas. OBJECTIVE: Vital Signs: Temperature 98.4 degrees, blood pressure 110/85, heart rate 81, respirations 16, O2 saturation is 98% on room air. General: This is a middle-aged female sitting up in bed, in no acute distress. Heart: S1, S2 normal. Regular rate and rhythm. Lungs: Clear to auscultation bilaterally. No wheezing. No rales. No rhonchi. Abdomen: Positive bowel sounds. Soft, nontender, nondistended. Extremities: No edema. No cyanosis. Neurologic: The patient is alert and oriented x3. LABS: Hemoglobin 9, hematocrit 26, platelets 230,000. Sodium 137, potassium 3.3, chloride 96, CO2 30, BUN 7, creatinine 0.4, glucose 118, calcium 8.4, magnesium 1.9, phosphorus 3.8, AST 58, ALT 25, alkaline phosphatase 139, albumin 2.6. ASSESSMENT AND PLAN: 1. Status post exploratory laparotomy with palliative small bowel bypass with a jejunal to transverse colon anastomosis. The patient is on a clear liquid diet. Management as per the General Surgeon. 2. Metastatic colon cancer. Management as per Dr. Barrios. 3. Hypokalemia. Will replace the patient's potassium. 4. Anemia. Stable. 5. Gastrointestinal prophylaxis. Continue on IV Protonix. 6. Deep vein thrombosis prophylaxis. Continue on heparin. cc: Maria Luz Serrano MD
[2018-08-30] MEDS ORDERED: POTASSIUM CHLORIDE IV SCH ×8 (20:00)
[2018-08-30] MEDS ORDERED: TPN ELECTROLYTES IV SCH ×8 (20:00)
[2018-08-30] MEDS ORDERED: POTASSIUM CHLORIDE 60 MEQ in NS 500 ML IV ONE (20:00)
[2018-08-30] MEDS ORDERED: [UNRECOGNIZED DRUG - OTHER] IV SCH ×8 (20:00)
[2018-08-30] MEDS ORDERED: MAGNESIUM SULFATE IV SCH ×8 (20:00)
[2018-08-31] MEDS: SODIUM CHLORIDE 0.9% INJ PRN ×2 (00:17→22:23)
[2018-08-31] MEDS: PHENERGAN IV PRN ×2 (00:17→22:23)
[2018-08-31] MEDS: ZOSYN 3.375 GM in NS 50 ML IV SCH ×5 (02:00→22:06)
[2018-08-31] MEDS: DILAUDID IV PRN ×9 (02:00→22:23)
--- NOTE | 2018-08-31 06:22 | GENERAL SURGERY PROGRESS NOTE ---
DATE: 08/31/2018 SUBJECTIVE: Patient doing okay. Nursing staff reports no major issues. OBJECTIVE: Vital Signs: Patient is currently afebrile. Her vital signs are stable. General: No acute distress. Cardiovascular: Regular rate and rhythm. Lungs: Grossly clear. Abdomen: Soft, appropriately tender. Dressing intact. ASSESSMENT AND PLAN: A 43-year-old female status post palliative small-bowel bypass for metastatic colon cancer. Postop state at this time, we will advance to a full liquid diet, we will see how she does. We will continue routine postoperative care. We will keep her on her TPN. cc: Toro Cervantes MD
[2018-08-31 07:20] LABS: HEMATOCRIT 36.8 % (37.0-47.0); HEMOGLOBIN 11.8 g/dL (12.0-16.0); MCH 33.5 PG (27-31); MCHC 32.1 g/dL (33-37); MCV 104.5 FL (81-99); MPV 10.3 FL (7.4-10.4); RBC 3.52 XMIL (4.2-5.4); WBC 7.96 X1000 (4.8-10.8)
[2018-08-31] MEDS: HEPARIN SUBQ SCH ×4 (07:28→22:07)
[2018-08-31 08:15] LABS: AGAP 13; ALB/GLOB RATIO 0.7; ALBUMIN 2.6 g/dL (3.5-5.0); ALKALINE PHOSPHATASE 246 U/L (32-104); BUN 6 mg/dL (8-22); CHLORIDE 102 mmol/L (98-107); COSMO 271; CREATININE 0.3 mg/dL (0.5-0.9); ESTIMATED GFR > 60; GLUCOSE 98 mg/dL (70-104); GOT 44 U/L (10-30); GPT 23 U/L (10-36); MAGNESIUM 1.9 mg/dL (1.5-2.7); PHOSPHORUS 3.3 mg/dL (2.7-4.5); POTASSIUM 4.3 mmol/L (3.5-5.1); SODIUM 137 mmol/L (136-145); TCO2 22 mmol/L (25-35); TOTAL BILIRUBIN 0.54 mg/dL (0.20-1.00); TOTAL PROTEIN 6.4 g/dL (6.3-8.3)
[2018-08-31] MEDS: ZOFRAN 16 MG in NS 25 ML IV SCH (09:06)
[2018-08-31] MEDS: PROTONIX IV SCH (09:06)
[2018-08-31] MEDS: PERIDEX MT SCH ×3 (09:13→22:07)
--- NOTE | 2018-08-31 09:51 | HEMO/ONC PROGRESS NOTE ---
DATE: 08/31/2018 SUBJECTIVE: Patient continues to improve. The patient continues to have pain, but that is slowly improving as well. OBJECTIVE: Vital Signs: Temperature 98.3 degrees heart rate 90, respiratory 14, blood pressure 108/74, saturating 94% on room air. General: Patient is awake, lying in bed, no acute distress noted. HEENT: Anicteric. PERRLA. Mucous membranes moist. Cardiovascular: S1, S2. Regular rate and rhythm. Chest: Bilateral breath sounds clear to auscultation. Abdomen: Soft, mildly tender. Dressing intact. Neurologic: Alert and oriented x3. No focal deficits noted. LABORATORY DATA: White count 7.96, hemoglobin 10.9, hematocrit 36.8, platelets are 281. Potassium 4.3, BUN 6, creatinine 0.3. ASSESSMENT AND PLAN: 1. Metastatic colorectal cancer: Plan is to restart treatment once patient at baseline and discharged home. We will continue to monitor. 2. Small bowel obstruction status post surgery: The patient continues to improve. Continue recommendations per General Surgery. Continue to monitor. 3. Anemia: Hemoglobin and hematocrit continue to improve. 4. Nutrition: Continue TPN as ordered. Continue slightly increased diet instructed by surgery. 5. Deep venous thrombosis prophylaxis. Continue heparin as ordered. 6. Supportive care: The patient to continue be out of bed as much as possible. The patient will continue strength exercise as instructed. 7. Pain management: Continue fentanyl patch. Pain slowly continues to improve. Continue IV pain medications p.r.n. as needed. We will continue to monitor. Dictated by SO Ricks for Christoph Barrios MD cc: SO Ricks MD [facility]
[2018-08-31] MEDS: NS 1,000 ML IV SCH (14:26)
--- NOTE | 2018-08-31 16:05 | PROGRESS NOTE ---
DATE: 08/31/2018 SUBJECTIVE: The patient is resting comfortably in bed. No acute events noted overnight. OBJECTIVE: Vital Signs: Temperature 98.2 degrees, blood pressure 118/82, heart rate 94, respirations 18, O2 saturation is 100% on room air. General: This is a middle-aged female sitting up in bed in no acute distress. Heart: S1, S2 normal. Regular rate and rhythm. Lungs: Clear to auscultation bilaterally. Abdomen: Positive bowel sounds. Soft, nontender, nondistended. Extremities: No edema, no cyanosis. Neurologic: The patient is alert and oriented x3. LABS: White blood cell count 7.9, hemoglobin 11, hematocrit 36, platelets 281,000. Sodium 137, potassium 4.3, chloride 102, CO2 22, BUN 6, creatinine 0.3, glucose 122. ASSESSMENT AND PLAN: 1. Status post exploratory laparotomy with palliative small-bowel bypass with jejunal to transverse colon anastomosis. Management as per the general surgeon. 2. Metastatic colon cancer. Aware. Dr. Barrios is following. 3. Anemia. Stable. 4. Gastrointestinal prophylaxis. Continue on Protonix. 5. Deep vein thrombosis prophylaxis. Continue on heparin. cc: Maria Luz Serrano MD
[2018-08-31] MEDS ORDERED: MAGNESIUM SULFATE IV SCH ×8 (20:00)
[2018-08-31] MEDS ORDERED: [UNRECOGNIZED DRUG - OTHER] IV SCH ×8 (20:00)
[2018-08-31] MEDS ORDERED: POTASSIUM CHLORIDE IV SCH ×8 (20:00)
[2018-08-31] MEDS ORDERED: TPN ELECTROLYTES IV SCH ×8 (20:00)
[2018-08-31] MEDS: LIPOSYN 20% 250 ML IV SCH (22:23)
[2018-09-01] MEDS: DILAUDID IV PRN ×8 (00:44→22:38)
[2018-09-01] MEDS: NS 1,000 ML IV SCH ×2 (02:43→14:08)
[2018-09-01] MEDS: ZOSYN 3.375 GM in NS 50 ML IV SCH (03:37)
[2018-09-01] MEDS: HEPARIN SUBQ SCH ×3 (05:50→20:10)
--- NOTE | 2018-09-01 06:29 | GENERAL SURGERY PROGRESS NOTE ---
DATE: 09/01/2018 SUBJECTIVE: Patient doing okay. She did have a bowel movement recorded. OBJECTIVE: Vital Signs: Patient is currently afebrile. Her vital signs are stable. General: No acute distress. Cardiovascular: Regular rate and rhythm. Lungs: Grossly clear. Abdomen: Soft, appropriately tender. Dressing intact. ASSESSMENT AND PLAN: A 43-year-old female status post palliative small bowel to transverse colon bypass, currently postoperative day number 6. Postoperative state: At this time, we will advance her to a regular diet. We will make sure she gets Ensure. The patient needs to mobilize. We will need to monitor her closely. Continue TPNs. cc: Toro Cervantes MD
[2018-09-01 07:02] LABS: ESTIMATED GFR > 60
[2018-09-01 07:10] LABS: AGAP 9; ALB/GLOB RATIO 1.1; ALBUMIN 2.7 g/dL (3.5-5.0); ALKALINE PHOSPHATASE 275 U/L (32-104); BUN 6 mg/dL (8-22); CALCIUM 8.5 mg/dL (8.8-10.2); CHLORIDE 98 mmol/L (98-107); CHOLESTEROL 91 mg/dL (0-200); COSMO 266; CREATININE 0.3 mg/dL (0.5-0.9); GLUCOSE 108 mg/dL (70-104); GOT 33 U/L (10-30); GPT 19 U/L (10-36); MAGNESIUM 1.6 mg/dL (1.5-2.7); POTASSIUM 4.4 mmol/L (3.5-5.1); PREALBUMIN 4.7 mg/dL (20-40); SODIUM 134 mmol/L (136-145); TCO2 27 mmol/L (25-35); TOTAL BILIRUBIN 0.68 mg/dL (0.20-1.00); TOTAL PROTEIN 5.2 g/dL (6.3-8.3); TRIGLYCERIDES 95 mg/dL (35-135)
[2018-09-01 07:13] LABS: HEMATOCRIT 27.7 % (37.0-47.0); HEMOGLOBIN 8.9 g/dL (12.0-16.0); MCH 32.8 PG (27-31); MCHC 32.1 g/dL (33-37); MCV 102.2 FL (81-99); MPV 10.3 FL (7.4-10.4); RBC 2.71 XMIL (4.2-5.4); RDW 12.9 % (11.5-14.5); WBC 7.98 X1000 (4.8-10.8)
[2018-09-01] MEDS: ZOFRAN 16 MG in NS 25 ML IV SCH (08:16)
[2018-09-01] MEDS: PERIDEX MT SCH ×2 (08:16→20:05)
[2018-09-01] MEDS: SODIUM CHLORIDE 0.9% INJ SCH (08:17)
[2018-09-01] MEDS ORDERED: DURAGESIC 75 MICROGM/HR PATCH TD SCH (08:30)
[2018-09-01] MEDS: PROTONIX IV SCH (08:35)
--- NOTE | 2018-09-01 09:41 | Diag Imaging Result Doc PS360 ---
EXAM: ABDOMEN FLAT/UPRIGHT HISTORY: pain TECHNIQUE: Flat and upright, two views COMPARISON: 08/23/2018 FINDINGS: No free air beneath the diaphragm. There are multiple midline skin mayank. There are air-filled loops of small bowel and colon. The stomach is also distended with air. No organomegaly. IMPRESSION: Air distended stomach and bowel likely from an ileus. Electronically signed by Gato Guerrero 09/01/2018 9:39 AM
--- NOTE | 2018-09-01 11:51 | HEMO/ONC PROGRESS NOTE ---
DATE: 09/01/2018 SUBJECTIVE: Patient continues to slowly feel better. The patient tolerating advancement in diet well at this time. The patient denies any new complaints. OBJECTIVE: Vital Signs: Temperature 97.4 degrees, heart rate 107, respiratory rate 20, blood pressure 112/71, saturating 90% on room air. General: Patient is awake, lying in bed, no acute distress noted. HEENT: Anicteric. Mucous membranes moist. Cardiovascular: S1, S2. Regular rate and rhythm. Chest: Bilateral breath sounds. Clear to auscultation. Abdomen: Soft, mildly tender. Dressing intact. Neurologic: Alert and oriented x3. No focal deficits noted. LABORATORY DATA: White count 7.98, hemoglobin 8.9, hematocrit 27.7, platelets are 254,000. Potassium 4.4, BUN 6, creatinine 0.3. ASSESSMENT AND PLAN: 1. Metastatic colorectal cancer: Treatment on hold until patient improves. Continue to monitor. 2. Small-bowel obstruction status post surgery: Patient continues to improve. The patient continues to slowly increase diet per General Surgery. Continue to monitor. 3. Anemia. Hemoglobin and hematocrit are stable. No signs of bleeding. Continue to monitor. Transfuse as needed. 4. Nutrition. The patient will be advancing diet to a regular diet today. Continue TPN as ordered. 5. Deep venous thrombosis prophylaxis. Continue heparin as ordered. Continue to have patient get out of bed as much as possible. 6. Supportive care. The patient will continue strength exercises as instructed and get out of bed as much as possible. Start protein shakes t.i.d. 7. Pain management. Continue current pain regimen. Pain continues to improve. Dictated by SO Ricks for Christoph Barrios MD Patient seen and examined. Continues have significant pain and need for Dilaudid every 2 hours. Increase Duragesic patch and titrate up. Next week we will plan to get pain management involved to see if celiac plexus lock can help. Christoph Barrios M.D. cc: SO Ricks MD [facility]
--- NOTE | 2018-09-01 18:05 | PROGRESS NOTE ---
DATE: 09/01/2018 SUBJECTIVE: The patient continues to complain of abdominal pain. No acute events noted overnight. OBJECTIVE: Vital signs: Temperature 99 degrees, blood pressure 114/66, heart rate 104 respirations 18, O2 saturation 98% on room air. General: This is a middle-aged female lying in bed, in no acute distress. Heart: S1, S2 normal. Tachycardic. Lungs: Equal air entry bilaterally. No wheezing. No rales. No rhonchi. Abdomen: Positive bowel sounds. Soft, nontender. Extremities: No edema. No cyanosis. Neurologic: The patient is alert and oriented x3. LABORATORY DATA: White blood cell count 7.9, hemoglobin 8.9, hematocrit 27, platelets 254,000. Sodium 134, potassium 4.4, chloride 98, CO2 is 27, BUN 6, creatinine 0.3, glucose 108, AST 33, ALT 19, alkaline phosphatase 275, albumin 2.7. ASSESSMENT AND PLAN: 1. Ileus. The patient had a bowel movement today. General Surgery is following. 2. Status post exploratory laparotomy with palliative small-bowel bypass, with jejunal to transverse colon anastomosis. Continue on total parenteral nutrition. The patient has been encouraged to try and increase her p.o. intake. Further management as per the general surgeon. 3. Metastatic colon cancer. Aware. Dr. Barrios is following. 4. Chronic pain secondary to the underlying malignancy. The patient's fentanyl patch has been increased to 50 mcg. We will continue to monitor the patient closely for improvement. 5. Anemia. Stable. 6. Gastrointestinal prophylaxis. Continue on Protonix. 7. Deep vein thrombosis prophylaxis. Continue on heparin. cc: Maria Luz Serrano MD
[2018-09-01] MEDS: LIPOSYN 20% 250 ML IV SCH (20:04)
[2018-09-01] MEDS: POTASSIUM CHLORIDE IV SCH ×8 (20:39)
[2018-09-01] MEDS: MAGNESIUM SULFATE IV SCH ×8 (20:39)
[2018-09-01] MEDS: [UNRECOGNIZED DRUG - OTHER] IV SCH ×8 (20:39)
[2018-09-01] MEDS: TPN ELECTROLYTES IV SCH ×8 (20:39)
[2018-09-02] MEDS: PHENERGAN IV PRN ×2 (00:22→17:38)
[2018-09-02] MEDS: SODIUM CHLORIDE 0.9% INJ SCH ×2 (00:22→08:40)
[2018-09-02] MEDS: DILAUDID IV PRN ×10 (01:44→22:10)
[2018-09-02] MEDS: HEPARIN SUBQ SCH ×3 (05:02→22:30)
[2018-09-02 06:47] LABS: HEMATOCRIT 27.1 % (37.0-47.0); HEMOGLOBIN 8.6 g/dL (12.0-16.0); MCH 32.7 PG (27-31); MCHC 31.7 g/dL (33-37); MPV 10.2 FL (7.4-10.4); RBC 2.63 XMIL (4.2-5.4); RDW 12.9 % (11.5-14.5); WBC 7.16 X1000 (4.8-10.8)
[2018-09-02 07:04] LABS: AGAP 7; BUN 8 mg/dL (8-22); CALCIUM 8.5 mg/dL (8.8-10.2); CHLORIDE 102 mmol/L (98-107); COSMO 275; CREATININE 0.3 mg/dL (0.5-0.9); ESTIMATED GFR > 60; GLUCOSE 111 mg/dL (70-104); POTASSIUM 4.2 mmol/L (3.5-5.1); SODIUM 138 mmol/L (136-145); TCO2 29 mmol/L (25-35)
[2018-09-02 07:18] LABS: ALBUMIN 2.6 g/dL (3.5-5.0); MAGNESIUM 1.7 mg/dL (1.5-2.7); PHOSPHORUS 3.9 mg/dL (2.7-4.5)
[2018-09-02] MEDS ORDERED: MAGNESIUM SULFATE 2 GM/S.W.I. 2 GM/50 ML IVPB IV ONE (07:25)
--- NOTE | 2018-09-02 07:35 | Diag Imaging Result Doc PS360 ---
EXAM: ABDOMEN FLAT/UPRIGHT 09/02/2018 HISTORY: ileus TECHNIQUE: Flat and upright abdomen COMMENT: There is some contrast opacified stool in the rectum and to lesser extent in the remainder of the colon. The stomach is markedly distended with gas. There are some distended small bowel loops. There is gas throughout the left colon including the rectum. No evidence of organomegaly or mass is present. There are surgical skin clips in the midline from the epigastrium to the pelvis. IMPRESSION: Ileus. Electronically signed by Leobardo Mendoza 09/02/2018 7:33 AM
[2018-09-02] MEDS: PROTONIX IV SCH (08:39)
[2018-09-02] MEDS: ZOFRAN 16 MG in NS 25 ML IV SCH (08:40)
[2018-09-02] MEDS: PERIDEX MT SCH ×2 (08:40→22:30)
--- NOTE | 2018-09-02 16:25 | GENERAL SURGERY PROGRESS NOTE ---
DATE: 09/02/2018 SUBJECTIVE: She has been having bowel function. She is distended. She gets full quickly. OBJECTIVE: No fevers. Heart rates in the high 90s. Blood pressure 110/79, oxygen saturation 99%. General: She is alert. Dressing is clean. Abdomen is soft but distended, nontender. DIAGNOSTIC DATA: White count is 7, hematocrit 27. Creatinine 0.3. ASSESSMENT AND PLAN: A 43-year-old female with metastatic colon carcinoma, status post palliative bypass. She is still quite distended. We will continue low volume diet, monitoring her bowel function. I have encouraged her to be out of bed. Plan for home in the next 24 to 48 hours if her bowel function continues to improve. cc: Katja Sierra MD
--- NOTE | 2018-09-02 20:35 | PROGRESS NOTE ---
DATE: 09/02/2018 SUBJECTIVE: The patient is resting comfortably. She states that she had a bowel movement today. OBJECTIVE: Vital Signs: Temperature 98.2, blood pressure 106/72, heart rate 101, respirations 24. O2 saturation 98% on room air. General: This is a middle-aged female sitting up in bed in no acute distress. Heart: S1, S2 normal. Regular rate and rhythm. Lungs: Clear to auscultation bilaterally. Abdomen: Distended. Mild tenderness on palpation. Extremities: No edema, no cyanosis. Neurologic: The patient is alert and oriented x3. LABS: White blood cell count 7.1, hemoglobin 8.6, hematocrit 27. Sodium 138, potassium 4.2, chloride 102, CO2 of 29, BUN 8, creatinine 0.3, glucose 111. Abdominal x-ray shows an ileus. ASSESSMENT AND PLAN: 1. Ileus. The patient is having bowel movements, but she is still distended. The patient has been advised to continue to try and ambulate as much as possible. 2. Status post exploratory laparotomy with palliative small-bowel bypass with jejunal to transverse colon anastomosis. Management as per the general surgeon. 3. Metastatic colon cancer. Aware. Dr. Barrios is following. 4. Chronic pain secondary to malignancy. Continue on the current fentanyl patch dosage. 5. Anemia. Stable. 6. Gastrointestinal prophylaxis. Continue on Protonix. 7. Deep vein thrombosis prophylaxis. Continue on heparin. cc: Maria Luz Serrano MD
[2018-09-02] MEDS: [UNRECOGNIZED DRUG - OTHER] IV SCH ×8 (22:14)
[2018-09-02] MEDS: TPN ELECTROLYTES IV SCH ×8 (22:14)
[2018-09-02] MEDS: MAGNESIUM SULFATE IV SCH ×8 (22:14)
[2018-09-02] MEDS: POTASSIUM CHLORIDE IV SCH ×8 (22:14)
[2018-09-02] MEDS: LIPOSYN 20% 250 ML IV SCH (22:14)
[2018-09-03] MEDS: DILAUDID IV PRN ×9 (00:28→21:22)
[2018-09-03] MEDS: SODIUM CHLORIDE 0.9% INJ PRN (05:00)
[2018-09-03] MEDS: PHENERGAN IV PRN ×2 (05:00→11:34)
[2018-09-03] MEDS: HEPARIN SUBQ SCH ×3 (05:59→21:22)
[2018-09-03 07:07] LABS: AGAP 10; ALBUMIN 2.6 g/dL (3.5-5.0); BUN 10 mg/dL (8-22); CALCIUM 8.4 mg/dL (8.8-10.2); CHLORIDE 99 mmol/L (98-107); COSMO 268; CREATININE 0.3 mg/dL (0.5-0.9); ESTIMATED GFR > 60; GLUCOSE 115 mg/dL (70-104); MAGNESIUM 1.9 mg/dL (1.5-2.7); PHOSPHORUS 4.5 mg/dL (2.7-4.5); POTASSIUM 4.6 mmol/L (3.5-5.1); SODIUM 134 mmol/L (136-145); TCO2 25 mmol/L (25-35)
[2018-09-03] MEDS: PROTONIX IV SCH (09:27)
[2018-09-03] MEDS: DURAGESIC 75 MICROGM/HR PATCH TD SCH (09:27)
[2018-09-03] MEDS: ZOFRAN 16 MG in NS 25 ML IV SCH (09:27)
[2018-09-03] MEDS: PERIDEX MT SCH ×2 (09:27→21:22)
[2018-09-03] MEDS: SODIUM CHLORIDE 0.9% INJ SCH (09:27)
[2018-09-03] MEDS: NS 1,000 ML IV SCH ×3 (10:32→13:09)
--- NOTE | 2018-09-03 10:33 | GENERAL SURGERY PROGRESS NOTE ---
DATE: 09/03/2018 SUBJECTIVE: She continues to have bowel function. OBJECTIVE: General: She remains distended. No events otherwise overnight. Vitals: Low-grade tachycardia. Blood pressure 116/74. Abdomen: Soft, mildly distended. Incision is intact. No cellulitis. LABORATORY: Creatinine 0.3. Glucose 115 and 123. ASSESSMENT AND PLAN: This is a 43-year-old female status post palliative bypass for metastatic colon cancer. We will keep her here, awaiting complete return of bowel function. She remains a little distended and I worry that she does have ongoing ileus, although she is tolerating some p.o. cc: Katja Sierra MD
--- NOTE | 2018-09-03 18:49 | PROGRESS NOTE ---
DATE: 09/03/2018 SUBJECTIVE: The patient is resting. She is still having a lot of pain. OBJECTIVE: Vital Signs: Temperature 98 degrees, blood pressure 124/81, heart rate 98, respirations 18, O2 saturations 100% on room air. General: This is a middle- aged female lying in bed in no acute distress. Heart: S1, S2, normal. Lungs: Equal air entry bilaterally. No crackles. No rales. Abdomen: Positive bowel sounds. Soft, nontender, nondistended. Extremities: No edema, no cyanosis. Neurologic: The patient is alert and oriented x3. LABS: Reviewed. ASSESSMENT AND PLAN: 1. Ileus. The patient had 2 bowel movements yesterday. Continue with current bowel regimen. 2. Status post exploratory laparotomy with small bowel bypass with jejunal to transverse colon anastomosis. Stable. 3. Chronic pain, secondary to malignancy. The patient's fentanyl dosage has been increased to [address] Barrios. Will monitor the patient for improvement. 4. Anemia. Stable. 5. Metastatic colon cancer. Aware. 6. Deep vein thrombosis prophylaxis. Continue on heparin. cc: Maria Luz Serrano MD [facility]
[2018-09-03] MEDS: TPN ELECTROLYTES IV SCH ×8 (22:30)
[2018-09-03] MEDS: POTASSIUM CHLORIDE IV SCH ×8 (22:30)
[2018-09-03] MEDS: LIPOSYN 20% 250 ML IV SCH (22:30)
[2018-09-03] MEDS: MAGNESIUM SULFATE IV SCH ×8 (22:30)
[2018-09-03] MEDS: [UNRECOGNIZED DRUG - OTHER] IV SCH ×8 (22:30)
[2018-09-04] MEDS: DILAUDID IV PRN ×9 (00:19→20:47)
[2018-09-04] MEDS: SODIUM CHLORIDE 0.9% INJ SCH ×2 (01:22→16:34)
[2018-09-04] MEDS: PHENERGAN IV PRN ×5 (01:22→20:47)
[2018-09-04] MEDS: HEPARIN SUBQ SCH ×3 (04:45→20:56)
[2018-09-04] MEDS: NS 1,000 ML IV SCH (06:08)
--- NOTE | 2018-09-04 07:14 | GENERAL SURGERY PROGRESS NOTE ---
DATE: 09/04/2018 SUBJECTIVE: Patient seems to be doing about the same. She is tolerating her diet. She has a little appetite, but she does have TPN going. She is having bowel movements. The consistency is somewhat diarrhea and somewhat solid. OBJECTIVE: Vital Signs: Patient is currently afebrile. Vital signs stable. General: No acute distress. Cardiovascular: Regular rate and rhythm. Lungs: Grossly clear. Abdomen: Soft, a little distended. Incision is healing well. Bowel sounds auscultated. ASSESSMENT AND PLAN: A 43-year-old female status post a palliative bypass from the jejunum to the transverse colon for metastatic colon cancer. 1. Postoperative state at this time- we will try to encourage more p.o. intake. I am unsure if she is getting short gut physiologically from the bypass because it sounds like her bowel movements are inconsistent in their thickness. We will do 1/2 the rate of TPN and lipids and to try to encourage p.o. intake. We will also need to see if she can maintain her caloric intake purely based off of p.o. intake to determine if she needs long-term TPN. We will make those arrangements today. cc: Toro Cervantes MD
[2018-09-04 07:36] LABS: HEMATOCRIT 26.4 % (37.0-47.0); HEMOGLOBIN 8.7 g/dL (12.0-16.0); MCH 33.3 PG (27-31); MCV 101.1 FL (81-99); MPV 10.4 FL (7.4-10.4); RBC 2.61 XMIL (4.2-5.4); RDW 13.2 % (11.5-14.5); WBC 8.21 X1000 (4.8-10.8)
[2018-09-04 07:44] LABS: AGAP 10; ALBUMIN 2.5 g/dL (3.5-5.0); BUN 10 mg/dL (8-22); CALCIUM 8.7 mg/dL (8.8-10.2); CHLORIDE 101 mmol/L (98-107); COSMO 269; CREATININE 0.3 mg/dL (0.5-0.9); ESTIMATED GFR > 60; GLUCOSE 104 mg/dL (70-104); MAGNESIUM 1.7 mg/dL (1.5-2.7); PHOSPHORUS 4.4 mg/dL (2.7-4.5); POTASSIUM 4.6 mmol/L (3.5-5.1); SODIUM 135 mmol/L (136-145); TCO2 24 mmol/L (25-35)
[2018-09-04] MEDS: LIPOSYN 20% 250 ML IV SCH (08:10)
--- NOTE | 2018-09-04 08:59 | HEMO/ONC PROGRESS NOTE ---
DATE: 09/04/2018 SUBJECTIVE: Patient continues slowly tolerating her diet. The patient says she continues to slowly feel better. OBJECTIVE: Vital Signs: Temperature 98.3 degrees, heart rate 97, respiratory rate 18, blood pressure saturating 95% on room air. General: Patient is awake, lying in bed, in no acute distress noted. HEENT: Anicteric. Pupils PERRLA. Mucous membranes moist. Cardiovascular: S1, S2. Regular rate and rhythm. Lungs: Bilateral breath sounds. Clear to auscultation. Abdomen: Soft, nondistended, mildly tender around the incisional site. Bowel sounds present in all 4 quadrants. Neurologic: Alert and oriented x3. No focal deficits noted. LABORATORY DATA: White blood cell count 8.21, hemoglobin 8.7, hematocrit 26.4, platelets are 285,000. Potassium 4.6, BUN 10, creatinine 0.3. ASSESSMENT AND PLAN: 1. Metastatic colorectal cancer: Treatment on hold until the patient improved. Continue to monitor. 2. Small bowel obstruction status post surgery: The patient is slowly tolerating diet. The patient is slowly healing well at this time. Continue to monitor. 3. Anemia. Hemoglobin and hematocrit continue to be stable. No signs of bleeding. Continue to monitor. Transfuse as needed. 4. Nutrition: Patient continues to advance diet. The patient will continue protein shakes. Continue to monitor. 5. Deep venous thrombosis prophylaxis: The patient will continue on heparin as ordered. Patient get out of bed as much as possible. 6. Pain management: Dr. Rothman consulted for further evaluation. Dictated by SO Ricks for Christoph Barrios MD Patient seen and examined. Pain continues to be significant despite increasing Duragesic. Consult pain management for celiac plexus block. The current management. Christoph Barrios M.D. cc: SO Ricks MD [facility]
[2018-09-04] MEDS: ZOFRAN 16 MG in NS 25 ML IV SCH (10:08)
[2018-09-04] MEDS: PROTONIX IV SCH (10:09)
[2018-09-04] MEDS: PERIDEX MT SCH ×2 (10:12→20:56)
--- NOTE | 2018-09-04 18:37 | PROGRESS NOTE ---
DATE: 09/04/2018 SUBJECTIVE: The patient is resting comfortably. She does complain of abdominal pain. She is still not eating well. OBJECTIVE: Vital Signs: Temperature 97.5 degrees, blood pressure 104/69, heart rate 95, respirations 16, O2 saturations 98% on room air. General: This is a young female lying in bed in no acute distress. Heart: S1, S2 normal. Regular rate and rhythm. Lungs: Equal air entry bilaterally. No crackles, no rales. Abdomen: Positive bowel sounds. Soft, nontender, nondistended. Extremities: No edema, no cyanosis, no calf tenderness. Neuro: The patient is alert and oriented x3. LABS: Sodium 135, potassium 4.6, chloride 101, CO2 24, BUN 10, creatinine 0.3, glucose 104, hemoglobin 8.7, hematocrit 26, platelets 285,000. ASSESSMENT AND PLAN: 1. Status post exploratory laparotomy with small bowel bypass with jejunal to transverse colon anastomosis. Stable. 2. Chronic pain secondary to malignancy. Continue on the fentanyl patch. 3. Metastatic colon cancer. Dr. Barrios is following. 4. Anemia. Stable. 5. Deep vein thrombosis prophylaxis. Continue on heparin. cc: Maria Luz Serrano MD
[2018-09-04] MEDS: [UNRECOGNIZED DRUG - OTHER] IV SCH ×8 (22:08)
[2018-09-04] MEDS: TPN ELECTROLYTES IV SCH ×8 (22:08)
[2018-09-04] MEDS: POTASSIUM CHLORIDE IV SCH ×8 (22:08)
[2018-09-04] MEDS: MAGNESIUM SULFATE IV SCH ×8 (22:08)
[2018-09-05] MEDS: DILAUDID IV PRN ×11 (00:04→21:24)
[2018-09-05] MEDS: PHENERGAN IV PRN ×3 (00:04→12:22)
[2018-09-05] MEDS: LIPOSYN 20% 250 ML IV SCH ×2 (04:04→08:12)
[2018-09-05] MEDS: HEPARIN SUBQ SCH (04:13)
[2018-09-05 06:58] LABS: HEMATOCRIT 25.5 % (37.0-47.0); HEMOGLOBIN 8.2 g/dL (12.0-16.0); MCH 32.7 PG (27-31); MCHC 32.2 g/dL (33-37); MCV 101.6 FL (81-99); MPV 10.6 FL (7.4-10.4); RBC 2.51 XMIL (4.2-5.4); RDW 13.3 % (11.5-14.5); WBC 7.31 X1000 (4.8-10.8)
[2018-09-05 07:27] LABS: AGAP 12; ALB/GLOB RATIO 0.7; ALBUMIN 2.4 g/dL (3.5-5.0); ALKALINE PHOSPHATASE 483 U/L (32-104); BUN 8 mg/dL (8-22); CALCIUM 8.5 mg/dL (8.8-10.2); CHLORIDE 100 mmol/L (98-107); COSMO 272; CREATININE 0.3 mg/dL (0.5-0.9); ESTIMATED GFR > 60; GLUCOSE 104 mg/dL (70-104); GOT 26 U/L (10-30); GPT 17 U/L (10-36); MAGNESIUM 1.8 mg/dL (1.5-2.7); PHOSPHORUS 4.4 mg/dL (2.7-4.5); SODIUM 137 mmol/L (136-145); TCO2 25 mmol/L (25-35); TOTAL BILIRUBIN 0.52 mg/dL (0.20-1.00); TOTAL PROTEIN 5.8 g/dL (6.3-8.3)
[2018-09-05 07:44] LABS: PREALBUMIN 7.1 mg/dL (20-40)
--- NOTE | 2018-09-05 07:50 | GENERAL SURGERY PROGRESS NOTE ---
DATE: 09/05/2018 SUBJECTIVE: The patient seems to be doing about the same. She did have a little bit of watery diarrhea. OBJECTIVE: Vital Signs: The patient is currently afebrile. Her vital signs are stable. General Examination: No acute distress. Resting. Cardiovascular: Regular rate and rhythm. Lungs: Grossly clear. Abdomen: Soft, nondistended. Appropriately tender. Incision is healing well. ASSESSMENT/PLAN: A 43-year-old with metastatic colon cancer, status post palliative bypass from the jejunum to the transverse colon. Postoperative state. At this time, we will continue to try to encourage oral intake. We will monitor her caloric intake. She still is on total parenteral nutrition. Dr. Barrios has consulted pain management to see if we can get better pain control but otherwise, continue current treatment. cc: Toro Cervantes MD
[2018-09-05] MEDS: ZOFRAN 16 MG in NS 25 ML IV SCH (10:13)
[2018-09-05] MEDS: PERIDEX MT SCH ×2 (10:13→21:58)
[2018-09-05] MEDS: PROTONIX IV SCH (10:14)
--- NOTE | 2018-09-05 10:45 | HEMO/ONC PROGRESS NOTE ---
DATE: 09/05/2018 SUBJECTIVE: The patient continues to have abdominal pain. The patient has no complaints at this time. OBJECTIVE: Vital Signs: Temperature is 98.3 degrees, heart rate 94, respiratory rate 16, blood pressure 101/66, saturating 97% on room air. General: Patient is awake, lying in bed. No acute distress noted. HEENT: Anicteric. Pupils PERRLA. Mucous membranes appear to be moist. Cardiovascular: S1, S2. Regular rate and rhythm. Lungs: Bilateral breath sounds clear to auscultation. Abdomen: Soft, nondistended, mildly tender. Incision healing well. Neurologic: Alert and oriented x3. No focal deficits noted. Laboratory Data: White blood cell count 7.1, hemoglobin 8.2, hematocrit 25.5, platelets 292,000. Potassium 4.0, BUN 8, creatinine 0.3. ASSESSMENT AND PLAN: 1. Metastatic colorectal cancer: Treatment on hold until the patient improves. Continue to monitor. 2. Small bowel obstruction, status post surgery: Patient continues tolerating diet at this time. The patient continues to heal well. Continue recommendations per surgery. 3. Anemia: Hemoglobin and hematocrit continue stable. No signs of bleeding. Continue to monitor. Transfuse as needed. 4. Pain management: Dr. Rothman has been consulted. Patient to go for a celiac plexus block tomorrow. The patient will be NPO after midnight. 5. Nutrition: Continue protein shakes. Continue to monitor. 6. Deep venous thrombosis prophylaxis: Hold heparin. Start back tomorrow 4 hrs after procedure. The patient is to get up as much as possible. Dictated by SO Ricks for Christoph Barrios MD Patient seen and examined. She continues to have significant amount of pain. Pain minimally better with increased doses of Duragesic. She is due to undergo celiac plexus block tomorrow. Hopefully this will help. She continues to get weaker and doubt that she will get stronger for further chemotherapy. Christoph Barrios M.D. cc: SO Ricks MD [facility]
[2018-09-05] MEDS: NS 1,000 ML IV SCH (11:36)
--- NOTE | 2018-09-05 17:15 | PROGRESS NOTE ---
DATE: 09/05/2018 SUBJECTIVE: The patient is resting comfortably in bed. OBJECTIVE: Vital signs: Temperature 98.5 degrees, pulse 93, respiratory 16, blood pressure 118/69, oxygen 98%. HEENT: Atraumatic, normocephalic. Cardiovascular: S1, S2. Respiratory: Has evidence of good entry bilaterally. Abdomen: Soft, nontender, no masses felt. Bowel sounds absent. Extremities: No evidence of edema. Central Nervous System: No focal deficit noted. LABS: WBC is 7.31, hematocrit 25.4 with a platelet count of 292,000, sodium is 137, potassium 4.0, bicarb 25, BUN 8, creatinine 0.3. ASSESSMENT AND PLAN: 1. Status post palliative bypass from jejunum to transverse colon. Patient being followed by surgical team. 2. History of metastatic colon cancer. Oncology following. 3. Anemia, follow up on hemoglobin, hematocrit, transfuse PRBC as needed. 4. Chronic pain secondary to malignancy. Optimize pain control. 5. Deep vein thrombosis prophylaxis heparin. 6. Disposition. Will discharge when considered appropriate by surgical team. cc: Juan Narayan MD [facility]
[2018-09-05] MEDS: MAGNESIUM SULFATE IV SCH ×8 (21:59)
[2018-09-05] MEDS: TPN ELECTROLYTES IV SCH ×8 (21:59)
[2018-09-05] MEDS: [UNRECOGNIZED DRUG - OTHER] IV SCH ×8 (21:59)
[2018-09-05] MEDS: POTASSIUM CHLORIDE IV SCH ×8 (21:59)
[2018-09-06] MEDS: DILAUDID IV PRN ×3 (00:20→05:04)
[2018-09-06] MEDS: NS 1,000 ML IV SCH ×2 (02:53→13:24)
[2018-09-06] MEDS: LIPOSYN 20% 250 ML IV SCH (05:04)
--- NOTE | 2018-09-06 06:42 | GENERAL SURGERY PROGRESS NOTE ---
DATE: 09/06/2018 SUBJECTIVE: The patient doing about the same. She is still having some abdominal pain requiring pretty consistent IV pain medicine and fentanyl patches. There is a plan for her to have a nerve block today. I will confirm with the OR. Otherwise, she is having bowel movements, tolerating food. Incision seems to be healing well. We will continue supportive care and TPN. cc: Toro Cervantes MD
[2018-09-06] MEDS ORDERED: DIPRIVAN 1% ONE (06:54)
[2018-09-06] MEDS ORDERED: VERSED ONE (07:08)
[2018-09-06] MEDS ORDERED: MARCAINE 0.25% ONE (07:08)
[2018-09-06] MEDS ORDERED: ALCOHOL DEHYDRATED INJ ONE (08:00)
--- NOTE | 2018-09-06 08:55 | HEMO/ONC PROGRESS NOTE ---
DATE: 09/06/2018 SUBJECTIVE: Patient continues to feel better. Patient going for celiac plexus block with Dr. Rothman. OBJECTIVE: Vital Signs: Temperature 97.8, heart rate 95, respiratory rate 18, blood pressure 105/65, saturating 95% on room air. General: Patient is awake, lying in bed, no acute distress noted. HEENT: Anicteric pupils. PERRLA. Mucous membranes moist. Cardiovascular: S1, S2. Regular rate and rhythm. Chest: Bilateral breath sounds. Clear to auscultation. Abdomen: Soft, mildly tender. Incision healing well. Neurologic: Alert and oriented x3. No focal deficits noted. ASSESSMENT AND PLAN: 1. Metastatic rectal cancer: Treatment on hold until the patient improves. 2. Small bowel obstruction status post surgery: The patient continues to increase diet slowly, tolerating it well. Continue recommendations per Surgery and Primary Medical Team. 3. Anemia. No signs of bleeding. Continue to monitor. Transfuse as needed. 4. Pain management: The patient had a celiac plexus block this morning with Dr. Rothman. Pain is slowly improving. 5. Nutrition: Continue to increase diet. Continue to increase protein shakes. 6. Deep venous thrombosis prophylaxis. Start back heparin after procedure. Continue to have patient get out of bed as much as possible. Dictated by SO Ricks for Christoph Barrios MD Patient seen and examined. Status post celiac plexus block this morning. She has not required any pain medicines over the last 4 hours. She drank a protein check today. She is in better spirits. Hopefully her pain will be better controlled over the next 24 hours. Christoph Barrios M.D. cc: SO Ricks MD [facility]
[2018-09-06] MEDS: PERIDEX MT SCH ×2 (09:11→21:33)
[2018-09-06] MEDS: PROTONIX IV SCH (09:12)
[2018-09-06] MEDS: ZOFRAN 16 MG in NS 25 ML IV SCH (09:12)
[2018-09-06] MEDS: DURAGESIC 75 MICROGM/HR PATCH TD SCH (09:33)
[2018-09-06 12:23] LABS: AGAP 10; ALBUMIN 2.5 g/dL (3.5-5.0); BUN 6 mg/dL (8-22); CALCIUM 8.7 mg/dL (8.8-10.2); CHLORIDE 99 mmol/L (98-107); COSMO 267; CREATININE 0.4 mg/dL (0.5-0.9); ESTIMATED GFR > 60; GLUCOSE 115 mg/dL (70-104); MAGNESIUM 1.7 mg/dL (1.5-2.7); PHOSPHORUS 3.9 mg/dL (2.7-4.5); POTASSIUM 3.7 mmol/L (3.5-5.1); SODIUM 134 mmol/L (136-145); TCO2 25 mmol/L (25-35)
--- NOTE | 2018-09-06 13:28 | PROGRESS NOTE ---
DATE: 09/06/2018 SUBJECTIVE: The patient is resting in bed. OBJECTIVE: Vital Signs: Temperature is 98.7 degrees, pulse 105, respiratory rate 18, blood pressure 117/74, oxygen saturation 100%. HEENT: Atraumatic and normocephalic. Cardiovascular System: S1 and S2. Respiratory: Has evidence of good entry bilaterally. Abdomen: Soft, nontender. No masses felt. Extremities: No evidence of edema. Central Nervous System: No obvious focal deficit noted. Labs: Sodium is 134, potassium 3.7, chloride is 99, bicarb is 25, BUN is 6, creatinine 0.4. ASSESSMENT AND PLAN: 1. Status post palliative bypass from jejunum to transverse colon. The patient is being followed by the surgical team. 2. History of metastatic colon cancer. Oncology following. 3. Anemia. Follow up on hemoglobin and hematocrit. Transfuse packed red blood cells as needed. 4. Chronic pain secondary to malignancy. Optimize pain control. 5. Deep vein thrombosis prophylaxis. Heparin. 6. Disposition. We will discharge her home when considered appropriate by the surgical team. cc: Juan Narayan MD [facility]
[2018-09-06] MEDS: HEPARIN SUBQ SCH (21:33)
[2018-09-07] MEDS: MAGNESIUM SULFATE IV SCH ×24 (00:30→22:18)
[2018-09-07] MEDS: [UNRECOGNIZED DRUG - OTHER] IV SCH ×24 (00:30→22:18)
[2018-09-07] MEDS: TPN ELECTROLYTES IV SCH ×24 (00:30→22:18)
[2018-09-07] MEDS: POTASSIUM CHLORIDE IV SCH ×24 (00:30→22:18)
[2018-09-07] MEDS: LIPOSYN 20% 250 ML IV SCH (05:27)
[2018-09-07] MEDS: HEPARIN SUBQ SCH ×3 (05:27→22:22)
[2018-09-07] MEDS: NS 1,000 ML IV SCH ×2 (05:28→11:58)
--- NOTE | 2018-09-07 06:06 | GENERAL SURGERY PROGRESS NOTE ---
DATE: 09/07/2018 SUBJECTIVE: Patient doing about the same overall. She did have a celiac nerve plexus block, which seems to be doing some what better on controlling her pain. She is having bowel movements, tolerating p.o. diet. From a surgical point of view, I think we can consider getting arrangements for home health and TPN, and maybe get her out of the hospital soon. cc: Toro Cervantes MD [facility]
[2018-09-07 07:13] LABS: AGAP 9; ALBUMIN 2.4 g/dL (3.5-5.0); BUN 7 mg/dL (8-22); CALCIUM 8.7 mg/dL (8.8-10.2); CHLORIDE 102 mmol/L (98-107); COSMO 272; CREATININE 0.3 mg/dL (0.5-0.9); ESTIMATED GFR > 60; GLUCOSE 131 mg/dL (70-104); MAGNESIUM 1.7 mg/dL (1.5-2.7); PHOSPHORUS 3.5 mg/dL (2.7-4.5); POTASSIUM 3.9 mmol/L (3.5-5.1); SODIUM 136 mmol/L (136-145); TCO2 25 mmol/L (25-35)
--- NOTE | 2018-09-07 08:14 | HEMO/ONC PROGRESS NOTE ---
DATE: 09/07/2018 SUBJECTIVE: Pain improving. The patient requiring less pain medication. The patient was placed on antibiotic yesterday. OBJECTIVE: Vital Signs: Temperature 97.9 degrees, heart rate 93, respiratory rate 16, blood pressure 114/67, satting 97% on room air. General: Patient is awake, lying in bed, no acute distress noted. HEENT: Anicteric. Pupils PERRLA. Mucous membranes appear to be moist. Cardiovascular: S1, S2. Regular rate and rhythm. Chest: Bilateral breath sounds. Clear to auscultation. Abdomen: Soft, mildly tender. Incision healing well. Neurologic: Alert and oriented x3. No focal deficits noted. LABORATORY DATA: Potassium 3.9, BUN 7, creatinine 0.3. ASSESSMENT AND PLAN: 1. Metastatic rectal cancer: Continue to hold treatment until patient improves. 2. Small bowel obstruction, status post surgery: The patient tolerating diet well. Continue recommendations per Surgery and Primary Medical team. 3. Anemia: No signs of bleeding. Continue to monitor. Transfuse as needed. 4. Pain management: The patient continues on pain medication. Pain continues to be better controlled after celiac plexus block. Continue to monitor closely. 5. Nutrition: Have the patient to continue to increase protein shakes. Continue total parenteral nutrition. Continue recommendations per Primary Medical Team. 6. Deep venous thrombosis prophylaxis: Continue heparin as ordered. Continue to have patient get out of bed as much as possible. Dictated by SO Ricks for Christoph Barrios MD Patient seen and examined. Status post celiac plexus block yesterday. Breakthrough Dilaudid requirements have substantially decreased. Continue Duragesic patch. Plan to DC TPN. Okay to discharge home from my standpoint. Christoph Barrios M.D. cc: SO Ricks MD [facility] [place]
[2018-09-07] MEDS: PROTONIX IV SCH (11:20)
[2018-09-07] MEDS: ZOFRAN 16 MG in NS 25 ML IV SCH (11:21)
[2018-09-07] MEDS: PERIDEX MT SCH ×2 (11:21→22:21)
--- NOTE | 2018-09-07 12:42 | PROGRESS NOTE ---
DATE: 09/07/2018 SUBJECTIVE: Patient resting in bed. No new complaints today. OBJECTIVE: Vitals: Vital signs as follows: Temperature 97.9 degrees, pulse 92, respiratory rate 16, blood pressure 118/71, oxygen 96%. HEENT: Atraumatic, normocephalic. Cardiovascular: S1, S2. Respiratory system: He has evidence of good air entry bilaterally. Abdomen: Soft, nontender. No masses felt. Extremities: No evidence of edema. Central Nervous System: No focal deficits noted. LABORATORY DATA: Sodium 136, potassium 3.9, chloride 102, bicarb 25, BUN is 7, creatinine 0.3. ASSESSMENT AND PLAN: 1. Status post palliative bypass from jejunum to transverse colon. The patient is being followed by the surgical team. 2. History of metastatic colon cancer. Oncology following. 3. Anemia. Follow up on hematocrit and hemoglobin and transfuse PRBCs as needed. 4. Poor oral intake. The patient is currently on total parenteral nutrition. In addition I did add Megace to help stimulate her appetite. 5. Chronic pain secondary to malignancy. Optimize pain control. 6. Deep vein thrombosis prophylaxis. Heparin. DISPOSITION: Possible discharge home 09/08/2018 if surgical team is in agreement. cc: Juan Narayan MD
[2018-09-07] MEDS: MEGACE LIQUID PO SCH (14:11)
[2018-09-08] MEDS: NS 1,000 ML IV SCH (00:58)
--- NOTE | 2018-09-08 06:05 | GENERAL SURGERY PROGRESS NOTE ---
DATE: 09/08/2018 SUBJECTIVE: Patient doing well. I think the celiac plexus block has worked well. She is almost 2 weeks out from the operation. We will get the nurses to remove mayank. PLAN: From a surgical point of view, I am okay with her going home with home health, but probably keeping her TPN. We will see if we can make those arrangements for discharge today. cc: Toro Cervantes MD
[2018-09-08] MEDS: LIPOSYN 20% 250 ML IV SCH (07:08)
[2018-09-08] MEDS: HEPARIN SUBQ SCH ×2 (07:12→15:21)
[2018-09-08 07:24] LABS: AGAP 8; ALBUMIN 2.4 g/dL (3.5-5.0); BUN 6 mg/dL (8-22); CALCIUM 7.9 mg/dL (8.8-10.2); CHLORIDE 105 mmol/L (98-107); COSMO 276; CREATININE 0.4 mg/dL (0.5-0.9); ESTIMATED GFR > 60; GLUCOSE 106 mg/dL (70-104); MAGNESIUM 1.8 mg/dL (1.5-2.7); PHOSPHORUS 3.7 mg/dL (2.7-4.5); POTASSIUM 3.9 mmol/L (3.5-5.1); SODIUM 139 mmol/L (136-145); TCO2 26 mmol/L (25-35)
[2018-09-08] MEDS: SODIUM CHLORIDE 0.9% INJ SCH (08:17)
[2018-09-08] MEDS: ZOFRAN 16 MG in NS 25 ML IV SCH (08:17)
[2018-09-08] MEDS: MEGACE LIQUID PO SCH (08:18)
[2018-09-08] MEDS: PROTONIX IV SCH (08:18)
[2018-09-08] MEDS: PERIDEX MT SCH (08:18)
--- NOTE | 2018-09-08 08:54 | HEMO/ONC PROGRESS NOTE ---
DATE: 09/08/2018 SUBJECTIVE: Patient's pain is greatly improved. The patient has no new complaints at this time. OBJECTIVE: Vital Signs: Temperature 97.7 degrees, heart rate 83, respiratory rate 16, blood pressure 106/67, saturation 96% on room air. General: Patient is awake, lying in bed, no acute distress noted. HEENT: Anicteric. Pupils PERRLA. Mucous membranes moist. Cardiovascular: S1, S2. Regular rate and rhythm. Chest: Bilateral breath sounds clear to auscultation. Abdomen: Soft, mildly tender. Incision healing well. Neurologic: Alert and oriented x3. No focal deficits noted. LABORATORY DATA: Potassium 3.9, BUN 6, creatinine 0.4. ASSESSMENT AND PLAN: 1. Metastatic rectal cancer: Patient's treatment is on hold until patient improves. The patient will follow up in clinic for further evaluation when she is discharged. 2. Small bowel obstruction status post surgery: Patient healing well. Continue recommendations per Surgery and Primary Medical Team. 3. Anemia. No signs of bleeding. 4. Pain management: The pain is much better controlled. The patient requiring very little medication at this time. Continue Duragesic patch. Continue to monitor closely. 5. Deep venous thrombosis prophylaxis. Continue heparin as ordered. Continue patient to get out of bed as much as possible. 6. Disposition. Patient okay to go from home from our standpoint. The patient is to follow up in clinic once she is discharged. Dictated by SO Ricks for Christoph Barrios MD cc: SO Ricks MD [facility]
[2018-09-08 11:44] LABS: ALB/GLOB RATIO 0.8; ALBUMIN 2.4 g/dL (3.5-5.0); DIRECT BILIRUBIN 0.1 mg/dL (0.00-0.20); TOTAL BILIRUBIN 0.22 mg/dL (0.20-1.00); TOTAL PROTEIN 5.4 g/dL (6.3-8.3)
[2018-09-08 15:03] VITALS: BP 111/67
--- NOTE | 2018-09-08 18:12 | DISCHARGE SUMMARY ---
ADMISSION DATE: 08/22/2018 DISCHARGE DATE: 09/08/2018 PRINCIPAL DIAGNOSES: 1. Partial obstruction in the distal jejunum/proximal ileum, status post palliative bypass from jejunum to transverse colon. SECONDARY DIAGNOSES 2. History of metastatic colon cancer. 3. Anemia. 4. Poor oral intake. 5. Chronic pain secondary to malignancy. 6. Hypokalemia. DISCHARGE MEDICATIONS: Include the following: Ambien 10 mg p.o. at bedtime; omeprazole 40 mg p.o. daily; multivitamin 1 p.o. daily; morphine sulfate 15 mg oral every 12 hours as needed. CONSULTATIONS: During this hospital stay, Dr. Toro Cervantes, Surgery; Dr. Christoph Barrios, Oncology. PROCEDURES: Done during this hospital stay, small bowel x-ray done on 08/23/2018 and it showed partial obstruction of distal jejunum/proximal ileum in the right lower quadrant; mucosal wall thickening as well as pneumatosis in the distal proximal segment. On 09/01/2018 the patient had exploratory laparotomy as well as palliative small-bowel bypass, with jejunum to transverse colon anastomosis. HOSPITAL COURSE: Ms. Melany Hamilton is a 43-year-old female who has a history of colon cancer with metastasis to the omentum. She presented to the hospital because of abdominal pains. X-ray of the small bowel showed evidence of partial obstruction of the distal jejunum/proximal ileum in the right lower quadrant. The patient was seen by the surgical team and subsequently had a palliative small-bowel bypass with jejunum to transverse colon anastomosis and also had exploratory laparotomy. Postoperatively her oral intake has been a challenge, and she has required TPN. Because of abdominal pain as well as colon cancer-related pain, the patient did have a celiac plexus neurotomy done by Dr. Lutz. This was done on 09/06/2018. DISPOSITION: At this time the patient is stable and she can be discharged to home. She will continue TPN at home. She will need to follow up with physicians including Dr. Cervantes, Surgery, and Dr. Barrios, Oncology, as well as her primary care physician. She will need to take her discharge medications as noted above. Her diet, while she needs to be on TPN, she can also take orally as tolerated as well. cc: Juan Narayan MD [facility]
== END 2018-09-08 16:01 | disposition home health service (06) | DRG 330 ==
LOC: DIRADM 13:47 → SUATTDRO 13:47 → 4N 14:13
PROVIDERS: ATTEND Internal Medicine
CPT/HCPCS: 71010; 71045; 74000; 74018; 74019; 74020; 74250; 76000; 80048; 80053; 80076; 81001; 82040; 82248; 82465; 82533; 82607; 82746; 82948; 83735; 84100; 84134; 84439; 84443; 84450; 84478; 85025; 85027; 94761; 94799; A9270; C9113; C9290; J0330; J1100; J1170; J1644; J1956; J2250; J2405; J2543; J2550; J3010; J3475; J3480; J7030; J7040; Q9966; Q9967; S0020; S0030; S0164; S0179; XXXXX